=== PATIENT | female | born 1950 | race Caucasian/White ===

== ENCOUNTER 2016-06-06 14:19 | Outpatient (CLI) | payer MEDICARE | END 2016-06-06 14:20 | disposition home or self-care (01) | DX: Z12.31 Encounter for screening mammogram for malignant neoplasm of breast (principal) ==

== ENCOUNTER 2017-05-16 11:22 | Emergency (ER) | payer MEDICARE ==
[2017-05-16 12:38] LABS: BASOPHILS % (AUTO) 0.7 %; EOSINOPHILS % (AUTO) 0.4 %; HGB - HEMOGLOBIN 12.6 g/dL (12.0-16.0); LYMPHOCYTES # (AUTO) 0.5 10^3/uL (1.5-3.5); LYMPHOCYTES % (AUTO) 14.4 %; MEAN CORPUSCULAR HEMOGLOBIN 33.5 pg (27.0-31.0); MEAN CORPUSCULAR HGB CONC 34.6 g/dL (32.0-36.0); MEAN CORPUSCULAR VOLUME 96.8 fL (81.0-99.0); MEAN PLATELET VOLUME 7.2 fL (7.9-10.8); MONOCYTES # (AUTO) 0.3 10^3/uL (0.0-1.0); MONOCYTES % (AUTO) 8.8 %; NEUTROPHILS # (AUTO) 2.9 10^3/uL (1.5-6.6); NEUTROPHILS % (AUTO) 75.7 %; PLT - PLATELET COUNT 211 10^3/uL (130-450); RED BLOOD COUNT 3.75 10^6/uL (4.20-5.40); RED CELL DISTRIBUTION WIDTH 14.5 % (12.0-15.0); WHITE BLOOD COUNT 3.8 x10^3/uL (4.8-10.8)
--- NOTE | 2017-05-16 12:43 | XRAY Report ---
EXAM: CHEST RADIOGRAPHY EXAM DATE: 05/16/2017 12:16 PM. CLINICAL HISTORY: Productive cough. COMPARISON: 04/18/2016 P14 2016. TECHNIQUE: 1 view. FINDINGS: Lungs/Pleura: Interstitium is prominent. Right lower lung parenchymal scarring and postsurgical olea es as before. No new consolidation. No vascular congestion. No pneumothorax. Mediastinum: Heart size is normal. Aorta is mildly tortuous. Other: No acute osseous abnormalities. IMPRESSION: 1. No acute disease in the chest. [facility] Referring Provider Line: [phone] SITE ID: [id number]
[2017-05-16 12:50] LABS: ALBUMIN 4.1 g/dL (3.2-5.5); ALBUMIN/GLOBULIN RATIO 1.5 (1.0-2.2); BILIRUBIN,TOTAL 0.7 mg/dL (0.2-1.0); CALCIUM 9.1 mg/dL (8.5-10.3); CREATININE 0.8 mg/dL (0.4-1.0); TOTAL PROTEIN 6.9 g/dL (6.7-8.2)
[2017-05-16 14:03] VITALS: BP 123/88
--- NOTE | 2017-05-16 14:24 | ED Physician Documentation ---
History of Present Illness - Stated complaint Stated Complaint: DIFF MOVING LEGS - Chief complaint Chief Complaint: General - History obtained from History obtained from: Patient - History of Present Illness Timing: Other (She had an endoscopic ultrasound on Fridaynce for a history of cirrhosis which per her was negative for varices which was what they were looking for. That night she developed cramps in her calves bilaterally and progressive diffuse myalgias with a low-grade fever and runny nose. She thinks she might be having a medication reaction.) Review of Systems Constitutional: reports: Fever, Chills, Myalgias, Fatigue Nose: reports: Rhinorrhea / runny nose Throat: denies: Sore throat Respiratory: reports: Cough. 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 - Present Medications Home Medications: Ambulatory Orders Medication Instructions Recorded Confirmed HYDROcod/ACETAM 5/325 [Vicodin 1 - 2 ea PO Q6H PRN #15 tablet 12/27/12 05/16/17 5/325] Metformin HCl [Fortamet] 500 mg PO HS 12/27/12 05/16/17 busPIRone [Buspar] 15 mg PO BID 12/27/12 05/16/17 Levothyroxine [Synthroid] 50 mcg PO QDAC 06/03/13 05/16/17 EPINEPHrine [Epipen] 0.3 mg SQ PRN PRN 09/14/14 05/16/17 Lisinopril 40 mg PO DAILY 09/14/14 05/16/17 raNITIdine [Zantac] 300 mg QPM 09/14/14 05/16/17 Cyclobenzaprine [Flexeril] 10 mg PO TID PRN #20 tablet 04/18/16 05/16/17 Acyclovir [Zovirax] 800 mg PO DAILY 05/16/17 05/16/17 Escitalopram Oxalate [Lexapro] 20 mg PO DAILY 05/16/17 05/16/17 Loratadine [Claritin] 10 mg PO DAILY 05/16/17 05/16/17 Oseltamivir [Tamiflu] 75 mg PO BID #10 capsule 05/16/17 - Allergies Allergies/Adverse Reactions: Allergies Allergy/AdvReac Type Severity Reaction Status Date / Time Iodinated Contrast- Oral and Allergy throat Verified 05/16/17 11:42 IV Dye swelling [Iodinated Contrast Media - IV Dye] pneumococcal vaccine Allergy swelling Verified 05/16/17 11:42 [Pneumococcal Vaccine] - Social History Does the pt smoke?: No Smoking Status: Never smoker Does the pt drink ETOH?: No Does the pt have substance abuse?: No - Immunizations Immunizations are current?: Yes - POLST Patient has POLST: No PD ED PE NORMAL - Vitals Vital signs reviewed: Yes - General General: Alert and oriented X 3, No acute distress - HEENT HEENT: PERRL, EOMI, Ears normal, Moist mucous membranes, Pharynx benign - Neck Neck: Supple, no meningeal sign, No bony TTP - Cardiac Cardiac: RRR, No murmur - Respiratory Respiratory: No respiratory distress, Clear bilaterally - Abdomen Abdomen: Non tender - Extremities Extremities: No edema, No calf tenderness / cord - Neuro Neuro: Alert and oriented X 3, No motor deficit (Normal extremity strength and reflexes) Eye Opening: Spontaneous Motor: Obeys Commands Verbal: Oriented GCS Score: 15 - Psych Psych: Normal mood, Normal affect Results - Vitals Vitals: Vital Signs - 24 hr 05/16/17 05/16/17 11:35 13:53 Temperature 37.2 C 36.9 C Heart Rate 64 76 Respiratory 16 18 Rate Blood Pressure 108/74 123/88 H O2 Saturation 99 97 Oxygen O2 Source Room air - Labs Labs: Laboratory Tests 05/16/17 05/16/17 05/16/17 12:25 12:25 12:25 WBC 3.8 L RBC 3.75 L Hgb 12.6 Hct 36.3 L MCV 96.8 MCH 33.5 H MCHC 34.6 RDW 14.5 Plt Count 211 MPV 7.2 L Neut # 2.9 Lymph # 0.5 L Gillespie # 0.3 Eos # 0.0 Baso # 0.0 Absolute Nucleated RBC 0.00 Nucleated RBC % 0.0 Sodium 135 Potassium 3.9 Chloride 99 L Carbon Dioxide 25 Anion Gap 11.0 BUN 18 Creatinine 0.8 Estimated GFR (MDRD) 72 L Glucose 102 H Calcium 9.1 Total Bilirubin 0.7 AST 37 ALT 19 Alkaline Phosphatase 50 Total Creatine Kinase 235 CK-MB (CK-2) Total Protein 6.9 Albumin 4.1 Globulin 2.8 Albumin/Globulin Ratio 1.5 Lipase 16 L Influenza A (Rapid) Influenza B (Rapid) Influenza Types A,B Ag 05/16/17 05/16/17 12:25 14:30 WBC RBC Hgb Hct MCV MCH MCHC RDW Plt Count MPV Neut # Lymph # Gillespie # Eos # Baso # Absolute Nucleated RBC Nucleated RBC % Sodium Potassium Chloride Carbon Dioxide Anion Gap BUN Creatinine Estimated GFR (MDRD) Glucose Calcium Total Bilirubin AST ALT Alkaline Phosphatase Total Creatine Kinase CK-MB (CK-2) 2.2 Total Protein Albumin Globulin Albumin/Globulin Ratio Lipase Influenza A (Rapid) POSITIVE H Influenza B (Rapid) Negative Influenza Types A,B Ag + H PD MEDICAL DECISION MAKING - ED course ED course: 66-year-old woman with the muscle aches fever and it started right after an endoscopy so she thought it was somehow related but given the fever I suspect she has influenza and she is influenza positive. Departure - Departure Disposition: Home, Self Care Clinical Impression: Influenza A Condition: Good Record reviewed to determine appropriate education?: Yes Instructions: ED Flu, Medication: Tamiflu (Oseltamivir) Prescriptions: Oseltamivir [Tamiflu] 75 mg PO BID #10 capsule Comments: Call your doctor to arrange a follow-up appointment, make the next available appointment. In the interim, return anytime if worse or if new symptoms develop. Your blood pressure was elevated today on check into the emergency department. This does not mean that you have hypertension, it is a common phenomenon to come to the emergency department and have elevated blood pressure. I recommend that you see your primary care physician within the week to have it rechecked when you are feeling better.
[2017-05-16] MEDS ORDERED: OSELTAMIVIR 75 MG CAPSULE PO STA (14:55)
== END 2017-05-16 15:28 | disposition home or self-care (01) ==
LOC: ED 11:22
DX: J10.1 Influenza due to other identified influenza virus with other respiratory manifestations (principal); R03.0 Elevated blood-pressure reading, without diagnosis of hypertension; E11.9 Type 2 diabetes mellitus without complications; Z79.84 Long term (current) use of oral hypoglycemic drugs; K74.60 Unspecified cirrhosis of liver; K75.9 Inflammatory liver disease, unspecified; E03.9 Hypothyroidism, unspecified
CPT/HCPCS: 36415; 71045; 80053; 82550; 82553; 83690; 85025; 87275; 87276; 99283; A9270

== ENCOUNTER 2017-06-19 15:38 | Outpatient (CLI) | payer MEDICARE ==
--- NOTE | 2017-06-23 12:51 | Mammography Report ---
DIGITAL SCREENING MAMMOGRAM: 06/19/2017 CLINICAL INDICATION: A 66-year-old nulliparous patient with history of benign biopsies, for screening. COMPARISON: 05/2016, 05/2015, 05/2014, 05/2013. TECHNIQUE: Routine CC and MLO projections were obtained of the breasts. FINDINGS: The breasts again demonstrate heterogeneously dense fibroglandular parenchyma bilaterally. Coarse and punctate, typically benign calcifications are present. No suspicious masses, clustered microcalcifications, or regions of architectural distortion are identified. IMPRESSION: BENIGN FINDINGS. RECOMMENDATION: ROUTINE ANNUAL SCREENING UNLESS OTHERWISE CLINICALLY INDICATED. BIRADS CATEGORY 2-BENIGN FINDINGS. STANDARD QUALIFYING STATEMENTS: 1. This examination was reviewed with the aid of Computer-Aided Detection (CAD). 2. A negative or benign imaging report should not delay biopsy if clinically suspicious findings are present. Consider surgical consultation if warranted. More than 5% of cancers are not identified by imaging. 3. Dense breasts may obscure an underlying neoplasm. TD: 06/23/2017 12:51
== END 2017-06-19 15:39 | disposition home or self-care (01) ==
LOC: DI 15:38
PROVIDERS: ATTEND Internal Medicine
DX: Z12.31 Encounter for screening mammogram for malignant neoplasm of breast (principal)
CPT/HCPCS: 77067

== ENCOUNTER 2017-09-14 16:49 | Emergency (ER) | payer MEDICARE ==
[2017-09-14 17:11] VITALS: BP 133/94
--- NOTE | 2017-09-14 19:00 | ED Physician Documentation ---
PD HPI Fall - Stated complaint Stated Complaint: RT KNEE INJ, LT HAND INJ - Chief complaint Chief Complaint: Wound - History obtained from History obtained from: Patient - History of Present Illness Mechanism of injury: Lost balance (2 dogs acame at her while she was walking her dog and she got knocked over. Abrasions of right knee/kyle and left hand. Pain right hip. Might have hit her head but no LOC, confusion, nor headache. 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 No: Movement Contributing factors: No: Anticoagulated Recently seen: Not recently seen Review of Systems Constitutional: denies: Fever Nose: denies: Rhinorrhea / runny nose, Congestion Throat: denies: Sore throat Respiratory: denies: Cough GI: denies: Abdominal Pain, Nausea, Vomiting, Diarrhea Skin: reports: Abrasion (s). 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 - Present Medications Home Medications: Ambulatory Orders Medication Instructions Recorded Confirmed Metformin HCl [Fortamet] 500 mg PO HS 12/27/12 09/16/17 busPIRone [Buspar] 15 mg PO BID 12/27/12 09/16/17 Levothyroxine [Synthroid] 50 mcg PO QDAC 06/03/13 09/16/17 EPINEPHrine [Epipen] 0.3 mg SQ PRN PRN 09/14/14 09/16/17 Lisinopril 40 mg PO DAILY 09/14/14 09/16/17 raNITIdine [Zantac] 300 mg QPM 09/14/14 09/16/17 Escitalopram Oxalate [Lexapro] 20 mg PO DAILY 05/16/17 09/16/17 - Allergies Allergies/Adverse Reactions: Allergies Allergy/AdvReac Type Severity Reaction Status Date / Time Iodinated Contrast- Oral and Allergy throat Verified 09/16/17 12:14 IV Dye swelling [Iodinated Contrast Media - IV Dye] pneumococcal vaccine Allergy swelling Verified 09/16/17 12:14 [Pneumococcal Vaccine] - Social History Does the pt smoke?: No Smoking Status: Never smoker Does the pt drink ETOH?: No Does the pt have substance abuse?: No - Immunizations Immunizations are current?: Yes - POLST Patient has POLST: No PD ED PE NORMAL - Vitals Vital signs reviewed: Yes - General General: Alert and oriented X 3, No acute distress, Well developed/nourished - HEENT HEENT: Atraumatic - Neck Neck: Supple, no meningeal sign, No bony TTP, No adenopathy - Cardiac Cardiac: RRR, No murmur - Respiratory Respiratory: Clear bilaterally - Back Back: No CVA TTP, No spinal TTP - Derm Derm: Normal color, Warm and dry - Extremities Extremities: Other (left palm with maría brasion. 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 No bony tenderness. Right knee/kyle with abrasions too, good ROM and no effusion, good weight bearing. Right hip with some tenderness laterally. Able to bear weight. No noted hematoma. ) Results - Vitals Vitals: Oxygen O2 Source Room air - Rads (name of study) [facility] hip Radiology: Prelim report reviewed, EMP read contemporaneously (no fractures) PD MEDICAL DECISION MAKING - ED course Complexity details: reviewed results, considered differential, d/w patient Departure - Departure Disposition: 01 Home, Self Care Clinical Impression: Accidental fall Qualifiers: Encounter type: initial encounter Qualified Code(s): W19.XXXA - Unspecified fall, initial encounter Contusion, hip Qualifiers: Encounter type: initial encounter Laterality: right Qualified Code(s): S70.01XA - Contusion of right hip, initial encounter Leg abrasion Qualifiers: Encounter type: initial encounter Laterality: right Qualified Code(s): S80.811A - Abrasion, right lower leg, initial encounter Hand abrasion Qualifiers: Encounter type: initial encounter Laterality: left Qualified Code(s): S60.512A - Abrasion of left hand, initial encounter Condition: Stable Record reviewed to determine appropriate education?: Yes Instructions: ED Abrasion Follow-Up: Gail Heard MD [Primary Care Provider] - Comments: Your x-ray appears good and no signs of fracture of the hip. It will be sore for a few days however. Tylenol or ibuprofen if needed for pains. Cleanse the abrasions a couple times a day and apply ointment. This should heal up over a week or so. Recheck if signs of infection. Discharge Date/Time: 09/14/17 19:52
--- NOTE | 2017-09-14 20:20 | XRAY Report ---
EXAM: RIGHT HIP AND PELVIS RADIOGRAPHY EXAM DATE: 09/14/2017 07:29 PM. HISTORY: Fall onto right side. COMPARISONS: None. TECHNIQUE: 1 view of the pelvis and 1 view of the hip. FINDINGS: Bones: Normal. No fracture or bone lesion. Joints: The bilateral hip, pubis symphysis, and sacroiliac joints are preserved. Soft Tissues: Normal. No soft tissue swelling. IMPRESSION: No fracture identified. [facility] Referring Provider Line: [phone] SITE ID: [id number]
== END 2017-09-14 19:52 | disposition home or self-care (01) ==
LOC: ED 16:49
DX: S70.01XA Contusion of right hip, initial encounter (principal); S80.811A Abrasion, right lower leg, initial encounter; S60.512A Abrasion of left hand, initial encounter; W54.1XXA Struck by dog, initial encounter; Y93.K1 Activity, walking an animal; Y92.414 Local residential or business street as the place of occurrence of the external cause; K75.9 Inflammatory liver disease, unspecified; E11.9 Type 2 diabetes mellitus without complications; Z79.84 Long term (current) use of oral hypoglycemic drugs
CPT/HCPCS: 99283

== ENCOUNTER 2017-09-16 11:45 | Emergency (ER) | payer MEDICARE ==
[2017-09-16 12:14] VITALS: BP 121/80
--- NOTE | 2017-09-16 13:08 | ED Physician Documentation ---
PD HPI Fall - Stated complaint Stated Complaint: FALL MOUTH INJ - Chief complaint Chief Complaint: Heent - History obtained from History obtained from: Patient - History of Present Illness Mechanism of injury: Tripped Fall distance: Standing position Where injury occurred: Home Timing - onset: Enter time (1100), Today Injury(ies) location: Face Quality of pain: Pain Associated symptoms: Other (loose front tooth). No: LOC, AMS, Amnesia, Neck pain, Weakness, Paresthesias, Dyspnea Symptoms improve with: Rest, Ice Worsens with: Palpation Contributing factors: No: Anticoagulated Similar symptoms before: Has not had sx before Recently seen: Emergency Dept - Additional information Additional information: 66-year-old female was in her home today walking up the steps when she tripped and fell forward and hit her teeth on this step. She did not have any loss of consciousness she denies any nausea she denies any dizziness she denies any difficulty concentrating other than what she normally has. She describes that she has "brain fog "from treatment of hepatitis C. She is recently been seen in the emergency department for a fall landing on her hip. 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 - Present Medications Home Medications: Ambulatory Orders Medication Instructions Recorded Confirmed Metformin HCl [Fortamet] 500 mg PO HS 12/27/12 09/16/17 busPIRone [Buspar] 15 mg PO BID 12/27/12 09/16/17 Levothyroxine [Synthroid] 50 mcg PO QDAC 06/03/13 09/16/17 EPINEPHrine [Epipen] 0.3 mg SQ PRN PRN 09/14/14 09/16/17 Lisinopril 40 mg PO DAILY 09/14/14 09/16/17 raNITIdine [Zantac] 300 mg QPM 09/14/14 09/16/17 Escitalopram Oxalate [Lexapro] 20 mg PO DAILY 05/16/17 09/16/17 - Allergies Allergies/Adverse Reactions: Allergies Allergy/AdvReac Type Severity Reaction Status Date / Time Iodinated Contrast- Oral and Allergy throat Verified 09/16/17 12:14 IV Dye swelling [Iodinated Contrast Media - IV Dye] pneumococcal vaccine Allergy swelling Verified 09/16/17 12:14 [Pneumococcal Vaccine] - Social History Does the pt smoke?: No Smoking Status: Never smoker Does the pt drink ETOH?: No Does the pt have substance abuse?: Yes Substance Use and Type: Marijuana - Immunizations Immunizations are current?: Yes - POLST Patient has POLST: No PD ED PE NORMAL - Vitals Vital signs reviewed: Yes (normal ) - General General: Alert and oriented X 3, No acute distress, Well developed/nourished - HEENT HEENT: PERRL, EOMI, Ears normal, Moist mucous membranes, Pharynx benign, Other ( There is blood on the upper gums and #9 is loose but still in the socket and at the appropriate level ) - Neck Neck: Supple, no meningeal sign, No bony TTP - Cardiac Cardiac: RRR, No murmur - Respiratory Respiratory: No respiratory distress, Clear bilaterally - Abdomen Abdomen: Soft, Non tender - Back Back: No CVA TTP, No spinal TTP - Derm Derm: Normal color, Warm and dry, No rash - Extremities Extremities: No deformity, No edema - Neuro Neuro: Alert and oriented X 3, 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 ) Eye Opening: Spontaneous Motor: Obeys Commands Verbal: Oriented GCS Score: 15 - Psych Psych: Normal mood, Normal affect PD ED PE EXPANDED - HEENT HEENT Visual: 1 - tenderness (loose) Results - Vitals Vitals: Vital Signs - 24 hr 09/16/17 12:10 Temperature 36.4 C L Heart Rate 64 Respiratory 15 Rate Blood Pressure 121/80 O2 Saturation 94 Oxygen O2 Source Room air PD MEDICAL DECISION MAKING - ED course Complexity details: considered differential, d/w patient ED course: 66-year-old female with another fall who appears to have injured her front teeth and lips and gums. There is no specific intervention indicated at this time the patient does have an appointment to see her dentist in 3 days time and I have encouraged her to eat liquid foods only the tooth is loosened but not out of the socket and appears to be at the appropriate level. Departure - Departure Clinical Impression: Laceration of oral cavity Qualifiers: Encounter type: initial encounter Qualified Code(s): S01.512A - Laceration without foreign body of oral cavity, initial encounter Avulsion of tooth due to trauma Qualifiers: Encounter type: initial encounter Qualified Code(s): S03.2XXA - Dislocation of tooth, initial encounter Condition: Stable Instructions: ED Laceration Mouth, ED Fx Tooth Follow-Up: Gail Heard MD [Primary Care Provider] -
== END 2017-09-16 13:26 | disposition home or self-care (01) ==
LOC: ED 11:45
DX: E11.9 Type 2 diabetes mellitus without complications (principal); Z79.84 Long term (current) use of oral hypoglycemic drugs; S01.512A Laceration without foreign body of oral cavity, initial encounter; W10.9XXA Fall (on) (from) unspecified stairs and steps, initial encounter; Y92.009 Unspecified place in unspecified non-institutional (private) residence as the place of occurrence of the external cause
CPT/HCPCS: 99282

== ENCOUNTER 2018-04-18 11:09 | Emergency (ER) | payer MEDICARE ==
[2018-04-18 12:27] LABS: BASOPHILS % (AUTO) 0.2 %; EOSINOPHILS % (AUTO) 0.5 %; HGB - HEMOGLOBIN 12.5 g/dL (12.0-16.0); LYMPHOCYTES # (AUTO) 0.8 10^3/uL (1.5-3.5); LYMPHOCYTES % (AUTO) 8.9 %; MEAN CORPUSCULAR HEMOGLOBIN 33.7 pg (27.0-31.0); MEAN CORPUSCULAR HGB CONC 34.5 g/dL (32.0-36.0); MEAN CORPUSCULAR VOLUME 97.7 fL (81.0-99.0); MEAN PLATELET VOLUME 7.3 fL (7.9-10.8); MONOCYTES # (AUTO) 0.5 10^3/uL (0.0-1.0); MONOCYTES % (AUTO) 5.6 %; NEUTROPHILS % (AUTO) 84.8 %; PLT - PLATELET COUNT 190 10^3/uL (130-450); RED BLOOD COUNT 3.72 10^6/uL (4.20-5.40); RED CELL DISTRIBUTION WIDTH 13.8 % (12.0-15.0); WHITE BLOOD COUNT 9.4 x10^3/uL (4.8-10.8)
[2018-04-18 12:35] LABS: ALBUMIN 4.5 g/dL (3.2-5.5); ALBUMIN/GLOBULIN RATIO 1.6 (1.0-2.2); CALCIUM 9.3 mg/dL (8.5-10.3); CREATININE 1.1 mg/dL (0.4-1.0); TOTAL PROTEIN 7.3 g/dL (6.7-8.2)
[2018-04-18] MEDS ORDERED: ACETAMINOPHEN 325 MG TABLET PO STA (13:21)
--- NOTE | 2018-04-18 13:23 | ED Physician Documentation ---
History of Present Illness - Stated complaint Stated Complaint: FACIAL LACS/L ARM PAIN - Chief complaint Chief Complaint: Laceration - History obtained from History obtained from: Patient - History of Present Illness Timing: Today Pain level max: 5 Pain level now: 4 - Additonal information Additional information: 67-year-old female states that she was getting up to answer the phone when she tripped and fell, landing on her left arm as well as striking her face on the ground. She states she did not lose consciousness, but reportedly was drowsy and hard to arouse upon arrival to the emergency department. She complains of pain to the left humerus as well as to her face. Pain is better with rest and worse with movement. No neck or back pain. No focal numbness or tingling. Review of Systems Ten Systems: 10 systems reviewed and negative Constitutional: denies: Fever, Chills Eyes: denies: Decreased vision, Photophobia Ears: denies: Ear pain Nose: denies: Rhinorrhea / runny nose, Congestion Throat: denies: Sore throat Cardiac: denies: Chest pain / pressure Respiratory: denies: Cough, Wheezing GI: denies: Abdominal Pain, Nausea, Vomiting, Diarrhea : denies: Dysuria Skin: denies: Rash Musculoskeletal: denies: Neck pain, Back pain Neurologic: denies: Focal weakness, Numbness PD PAST MEDICAL HISTORY - Past Medical History Past Medical History: Yes Endocrine/Autoimmune: Type 2 diabetes, HyPOthyroidism GI: Hepatitis Psych: Depression, Anxiety - Past Surgical History 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 - Present Medications Home Medications: Ambulatory Orders Medication Instructions Recorded Confirmed Metformin HCl [Fortamet] 500 mg PO HS 12/27/12 09/16/17 busPIRone [Buspar] 15 mg PO BID 12/27/12 09/16/17 Levothyroxine [Synthroid] 50 mcg PO QDAC 06/03/13 09/16/17 EPINEPHrine [Epipen] 0.3 mg SQ PRN PRN 09/14/14 09/16/17 Lisinopril 40 mg PO DAILY 09/14/14 09/16/17 raNITIdine [Zantac] 300 mg QPM 09/14/14 09/16/17 Escitalopram Oxalate [Lexapro] 20 mg PO DAILY 05/16/17 09/16/17 HYDROcod/ACETAM 5/325 [[place] 5/325] 04/18/18 Levothyroxine [Synthroid] 04/18/18 04/18/18 Oxycodone HCl/Acetaminophen 1 - 2 each PO Q6H PRN #14 tablet 04/18/18 [Percocet 5-325 mg Tablet] clonazePAM [Clonazepam] 04/18/18 metFORMIN [Glucophage] 04/18/18 - Allergies Allergies/Adverse Reactions: Allergies Allergy/AdvReac Type Severity Reaction Status Date / Time Iodinated Contrast- Oral and Allergy throat Verified 04/18/18 11:23 IV Dye swelling [Iodinated Contrast Media - IV Dye] pneumococcal vaccine Allergy swelling Verified 04/18/18 11:23 [Pneumococcal Vaccine] - Social History Does the pt smoke?: No Smoking Status: Former smoker Does the pt drink ETOH?: No Does the pt have substance abuse?: Yes Substance Use and Type: Marijuana - Immunizations Immunizations are current?: Yes Immunizations: TDAP current <10years - POLST Patient has POLST: No PD ED PE NORMAL - Vitals Vital signs reviewed: Yes - General General: Alert and oriented X 3, No acute distress, Well developed/nourished - HEENT HEENT: PERRL, EOMI, Ears normal, Moist mucous membranes, Other (Laceration to the bridge of the nose. Approximately 1.5 cm, curved. Swelling to the bridge of the nose as well. Dried blood inside bilateral nares. No visible septal hematomas. There is also dried blood in the oropharynx. No visible lacerations here. No dental injury noted.) - Neck Neck: Supple, no meningeal sign, No bony TTP (Full range of motion without pain. No step-off or deformity) - Cardiac Cardiac: RRR, Strong equal pulses - Respiratory Respiratory: No respiratory distress, Clear bilaterally - Abdomen Abdomen: Soft, Non tender, Non distended - Back Back: No spinal TTP - Derm Derm: Warm and dry - Extremities Extremities: No deformity, Other (Diffuse tenderness to palpation over the left humerus. Neurovascularly intact.) - Neuro Neuro: Alert and oriented X 3 - Psych Psych: Normal mood, Normal affect Results - Vitals Vitals: Vital Signs - 24 hr 04/18/18 04/18/18 04/18/18 11:20 13:06 13:38 Temperature 36.4 C L Heart Rate 62 59 L 55 L Respiratory 14 20 18 Rate Blood Pressure 94/44 L 106/61 107/80 O2 Saturation 90 L 94 93 04/18/18 04/18/18 15:01 15:21 Temperature 37.2 C 36.6 C Heart Rate 79 94 Respiratory 16 24 Rate Blood Pressure 99/57 L 117/53 L O2 Saturation 93 98 Oxygen O2 Source Room air - Labs Labs: Laboratory Tests 04/18/18 04/18/18 04/18/18 11:55 11:55 12:39 WBC 9.4 RBC 3.72 L Hgb 12.5 Hct 36.3 L MCV 97.7 MCH 33.7 H MCHC 34.5 RDW 13.8 Plt Count 190 MPV 7.3 L Neut # (Auto) 8.0 H Lymph # (Auto) 0.8 L [place] # (Auto) 0.5 Eos # (Auto) 0.0 Baso # (Auto) 0.0 Absolute Nucleated RBC 0.00 Nucleated RBC % 0.0 Sodium 131 L Potassium 3.6 Chloride 94 L Carbon Dioxide 27 Anion Gap 10.0 BUN 23 H Creatinine 1.1 H Estimated GFR (MDRD) 50 L Glucose 128 H POC Whole Bld Glucose 102 H Calcium 9.3 Total Bilirubin 1.0 AST 27 ALT 13 Alkaline Phosphatase 80 Total Protein 7.3 Albumin 4.5 Globulin 2.8 Albumin/Globulin Ratio 1.6 Lipase 19 L - Rads (name of study) CT head Radiology: Prelim report reviewed, EMP read contemporaneously, See rad report (Nasal fracture present, with adjacent soft tissue contusion. No intracranial abnormality.) Ct facial bones Radiology: Prelim report reviewed, EMP read contemporaneously, See rad report (Nasal fracture, including septum noted described above with adjacent soft tissue contusion) L humerus xray Radiology: Prelim report reviewed, EMP read contemporaneously, See rad report (Transverse fracture involving the left humeral neck. Possible marrow heterogeneity suggests possibility of pathologic fracture. ) cxr Radiology: Prelim report reviewed, EMP read contemporaneously, See rad report (Minimal atelectatic changes at the left costophrenic angle without consolidation. Transverse fracture of the left humeral neck. Right supraspinatus calcific tendinosis. ) Procedures - Laceration (location) bridge of nose Length in cm: 1.5 Wound type: Curved, Superficial, Clean Neurovascular status: Sensory intact Wound Preparation: Irrigated copiously NS (250ml NS) Skin layer closure: Dermabond Other: Patient tolerated well, No complications, Neurovascular intact, Dressing applied, Tetanus UTD Complexity: Simple PD MEDICAL DECISION MAKING - ED course Complexity details: reviewed results, re-evaluated patient, considered differential, d/w patient ED course: d/w Dr. Camara, ortho who recommends sling and follow up in clinic. Laceration repaired. Pain controlled. Will follow up with PCP and ortho. Pt counseled regarding expected course and signs and symptoms for which I believe an urgent evaluation would be necessary. Pt with good understanding and agreement to plan. Departure - Departure Disposition: 01 Home, Self Care Clinical Impression: Fracture of neck of humerus Qualifiers: Encounter type: initial encounter Fracture type: closed Laterality: left Qualified Code(s): S42.212A - Unspecified displaced fracture of surgical neck of left humerus, initial encounter for closed fracture Nasal bone fractures Qualifiers: Encounter type: initial encounter Fracture type: closed Qualified Code(s): S02.2XXA - Fracture of nasal bones, initial encounter for closed fracture Nasal laceration Qualifiers: Encounter type: initial encounter Qualified Code(s): S01.21XA - Laceration without foreign body of nose, initial encounter Condition: Good Instructions: ED Fx Upper Ext, ED Laceration All, ED Fx Nose W Lac Skin Glue Follow-Up: [facility] [Provider Group] - Within 1 week Gail Heard MD [Primary Care Provider] - Within 1 week Prescriptions: Oxycodone HCl/Acetaminophen [Percocet 5-325 mg Tablet] 1 - 2 each PO Q6H PRN #14 tablet PRN Reason: pain Comments: Wear the sling until released by orthopedics. Return if you worsen. You have a fracture of your left humeral neck, up in your shoulder as well as of your nose. Do not drink alcohol or drive while on narcotic pain medicine. Note that many narcotic pain relievers also contain tylenol/acetaminophen. Please ensure that your total dose of acetaminophen from all sources does not exceed 3 grams (3000mg) per day. You may constipated on this medication, take a stool softener such as "Colace" twice a day while you are on it. Also recommend a [id number] laxative such as senna or MiraLAX any day that you do not have a bowel movement. If you received narcotic pain medication in the emergency department, do not drive or operate machinery for the next 24 hours. Discharge Date/Time: 04/18/18 15:22
[2018-04-18] MEDS ORDERED: SODIUM CHLORIDE 0.9% 1,000 ML IV ONE (13:24)
--- NOTE | 2018-04-18 14:18 | XRAY Report ---
Reason: hypoxia Procedure Date: 04/18/2018 Accession Number: [id number] / [id number] Procedure: XR - Chest 1 View X-Ray CPT Code: 76956 FULL RESULT: EXAM: CHEST RADIOGRAPHY EXAM DATE: 04/18/2018 01:54 PM. CLINICAL HISTORY: Hypoxia. COMPARISON: Previous exam of 04/18/2016. TECHNIQUE: 1 view. FINDINGS: Lungs/Pleura: Minimal atelectatic changes seen at the left lateral costophrenic angle. No gross consolidation seen. Mediastinum: Within exam limitations, the cardiomediastinal contour is normal. Other: There has been interval development of transverse fracture at the left humeral neck. Right supraspinatus calcific tendinosis noted. IMPRESSION: 1. Minimal atelectatic changes at the left costophrenic angle without evidence of consolidation. 2. Transverse fracture of the left humeral neck, new since exam of 04/18/2016. 3. Right supraspinatus calcific tendinosis. RADIA
--- NOTE | 2018-04-18 14:20 | XRAY Report ---
Reason: fall L arm pain Procedure Date: 04/18/2018 Accession Number: [id number] / [id number] Procedure: XR - Humerus LT CPT Code: FULL RESULT: EXAM: LEFT HUMERUS RADIOGRAPHY EXAM DATE: 04/18/2018 01:54 PM. CLINICAL HISTORY: Arm pain post fall. COMPARISON: X-ray of the clavicle from 04/11/2014. TECHNIQUE: 2 views. FINDINGS: Bones: There is a transverse fracture involving the left humeral neck. There is possible marrow heterogeneity. Joints: Mild degenerative changes noted. No effusions or subluxations in the visualized shoulder or elbow joints. Soft Tissues: Mild soft tissue swelling seen. IMPRESSION: Transverse fracture involving the left humeral neck. Possible marrow heterogeneity suggests possibility of pathologic fracture. Clinical correlation is recommended. RADIA
--- NOTE | 2018-04-18 14:33 | CT Report ---
Reason: fall, drowsiness, head injury Procedure Date: 04/18/2018 Accession Number: [id number] / [id number] Procedure: CT - Head W/O CPT Code: FULL RESULT: EXAM: CT HEAD EXAM DATE: 04/18/2018 02:02 PM. CLINICAL HISTORY: Fall, drowsiness, head injury. COMPARISON: Previous exam of 09/14/2014. TECHNIQUE: Multiaxial CT images were obtained from the foramen magnum to the vertex. Reformats: Sagittal and coronal. IV contrast: None. In accordance with CT protocol optimization, one or more of the following dose reduction techniques were utilized for this exam: automated exposure control, adjustment of mA and/or KV based on patient size, or use of iterative reconstructive technique. FINDINGS: Parenchyma: No intraparenchymal hemorrhage. No evidence of mass, midline shift, or CT findings of infarction. Killian-white differentiation is distinct. Extraaxial Spaces: Normal for age. No subdural or epidural collections identified. Ventricles: Normal in size and position. Sinuses and Orbits: Imaged paranasal sinuses, orbits, and mastoids show no significant abnormality. Bones: A nasal fracture is present, with adjacent soft tissue contusion. Other: None. IMPRESSION: Nasal fracture present, with adjacent soft tissue contusion. No CT evidence of acute intracranial disease. RADIA
--- NOTE | 2018-04-18 14:37 | CT Report ---
Reason: fall, nasal and maxilla tenderness/laceration Procedure Date: 04/18/2018 Accession Number: [id number] / [id number] Procedure: CT - Facial Bones W/O CPT Code: FULL RESULT: EXAM: CT MAXILLOFACIAL WITHOUT CONTRAST EXAM DATE: 04/18/2018 02:02 PM. CLINICAL HISTORY: Fall, nasal and maxilla tenderness/laceration. COMPARISONS: None. TECHNIQUE: Thin-section axial images were acquired of the face without contrast. Post-processing: Coronal and sagittal reformats. Other: None. In accordance with CT protocol optimization, one or more of the following dose reduction techniques were utilized for this exam: automated exposure control, adjustment of mA and/or KV based on patient size, or use of iterative reconstructive technique. FINDINGS: Soft Tissue: The infratemporal fossa and parapharyngeal spaces are unremarkable. Orbits: Symmetric and unremarkable. Bones: There is a nasal fracture without significant displacement. Fracture of the nasal septum is noted, with slight left deviation. There is adjacent soft tissue contusion seen. Temporomandibular Joints: The temporomandibular joints are symmetric and normally located. Sinuses: Polyp versus mucus retention cyst seen in the mid left ethmoid sinuses. Other: None. IMPRESSION: Nasal fracture, including septum noted described above with adjacent soft tissue contusion. RADIA
[2018-04-18] MEDS ORDERED: oxyCODONE 5 MG TABLET PO STA (14:54)
[2018-04-18 15:21] VITALS: BP 117/53
== END 2018-04-18 15:22 | disposition home or self-care (01) ==
LOC: ED 11:09
DX: S42.212A Unspecified displaced fracture of surgical neck of left humerus, initial encounter for closed fracture (principal); S02.2XXA Fracture of nasal bones, initial encounter for closed fracture; S01.21XA Laceration without foreign body of nose, initial encounter; E03.9 Hypothyroidism, unspecified; E11.9 Type 2 diabetes mellitus without complications; Z79.84 Long term (current) use of oral hypoglycemic drugs; Z87.891 Personal history of nicotine dependence; W01.0XXA Fall on same level from slipping, tripping and stumbling without subsequent striking against object, initial encounter
CPT/HCPCS: 12011; 36415; 70450; 70486; 71045; 73060; 80053; 83690; 85025; 96360; 96361; 99284; A9270

== ENCOUNTER 2018-04-20 09:04 | Emergency (ER) | payer MEDICARE ==
--- NOTE | 2018-04-20 10:02 | ED Physician Documentation ---
PD HPI UPPER EXT INJURY - Stated complaint Stated Complaint: PAIN 2ND TO FALL - Chief complaint Chief Complaint: Ext Problem - History obtained from History obtained from: Patient - History of Present Illness Location: Left, Shoulder Type of injury: Fall Where injury occurred: Home Timing - onset: How many days ago (3) Timing - duration: Days (3) Timing - details: Abrupt onset, Still present Improved by: Rest, Immobilization Worsened by: Moving, Palpating Associated symptoms: Swelling, Discolored. No: Weakness, Numbness Contributing factors: No: Anticoagulated Similar symptoms before: Has not had sx before Recently seen: Emergency Dept - Additonal information Additional information: 67-year-old female had a fall onto her face and she fractured her left humerus and her nose. She is been placed into a sling and swath and she is not able to put herself into the sling. She has not been able to figure out the sling and swath. She is come to the emergency department this morning with this chief complaint. Review of Systems Constitutional: denies: Fever Respiratory: denies: Cough GI: denies: Vomiting Musculoskeletal: reports: Extremity pain, Joint pain, Joint swelling. 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 - Present Medications Home Medications: Ambulatory Orders Medication Instructions Recorded Confirmed Metformin HCl [Fortamet] 500 mg PO HS 12/27/12 09/16/17 busPIRone [Buspar] 15 mg PO BID 12/27/12 09/16/17 Levothyroxine [Synthroid] 50 mcg PO QDAC 06/03/13 09/16/17 EPINEPHrine [Epipen] 0.3 mg SQ PRN PRN 09/14/14 09/16/17 Lisinopril 40 mg PO DAILY 09/14/14 09/16/17 raNITIdine [Zantac] 300 mg QPM 09/14/14 09/16/17 Escitalopram Oxalate [Lexapro] 20 mg PO DAILY 05/16/17 09/16/17 HYDROcod/ACETAM 5/325 [[place] 5/325] 04/18/18 Levothyroxine [Synthroid] 04/18/18 04/18/18 Oxycodone HCl/Acetaminophen 1 - 2 each PO Q6H PRN #14 tablet 04/18/18 [Percocet 5-325 mg Tablet] clonazePAM [Clonazepam] 04/18/18 - Allergies Allergies/Adverse Reactions: Allergies Allergy/AdvReac Type Severity Reaction Status Date / Time Iodinated Contrast- Oral and Allergy throat Verified 04/20/18 09:22 IV Dye swelling [Iodinated Contrast Media - IV Dye] pneumococcal vaccine Allergy swelling Verified 04/20/18 09:22 [Pneumococcal Vaccine] - Social History Does the pt smoke?: No Smoking Status: Former smoker Does the pt drink ETOH?: No Does the pt have substance abuse?: Yes - Immunizations Immunizations are current?: Yes Immunizations: TDAP current <10years - POLST Patient has POLST: No PD ED PE NORMAL - Vitals Vital signs reviewed: Yes (normal ) - General General: Alert and oriented X 3, No acute distress, Well developed/nourished - HEENT HEENT: PERRL, EOMI, Other (The patient has bruising to the face consistent with the previously described injury with nasal fracture. ) - Neck Neck: Supple, no meningeal sign, No bony TTP - Respiratory Respiratory: No respiratory distress - Derm Derm: Normal color, Warm and dry - Extremities Extremities: Other (There is swelling and ecchymosis to the left shoulder consistent with the fracture the paitent has sustained. ) - Neuro Neuro: Alert and oriented X 3, tile edger 2-12 intact, No motor deficit, No sensory deficit, Normal speech Eye Opening: Spontaneous Motor: Obeys Commands Verbal: Oriented GCS Score: 15 - Psych Psych: Normal mood, Normal affect Results - Vitals Vitals: Vital Signs - 24 hr 04/20/18 09:18 Temperature 37.1 C Heart Rate 90 Respiratory 17 Rate Blood Pressure 114/71 O2 Saturation 97 Oxygen O2 Source Room air PD MEDICAL DECISION MAKING - ED course Complexity details: considered differential, d/w patient ED course: 67-year-old female with a recent fall is unable to get her sling and swath to fit properly she is taught the application of the sling and she is instructed to remove her arm from the sling twice per day to do pendulum range of motion exercises. She is bargaining for more pain medication and she and she is referred back to her primary care doctor who does her pain management. Departure - Departure Disposition: 01 Home, Self Care Clinical Impression: Fracture of neck of humerus Qualifiers: Encounter type: subsequent encounter Fracture type: closed Laterality: left F racture healing: with routine healing Qualified Code(s): S42.212D - Unspecified displaced fracture of surgical neck of left humerus, subsequent encounter for fracture with routine healing Condition: Stable Instructions: ED Fx Shoulder Follow-Up: Gail Heard MD [Primary Care Provider] - Jeramy Camara MD [Provider Admit Priv/Credential] - Comments: You will need to wear the sling and swath continuously and remove it twice per day to do range of motion exercises with your shoulder. To do this remove the sling leaning to your side and roll your arm in a mild range of motion. You are under pain management by her primary care doctor and will need to get further pain medication from your primary care doctor give doctor Félix call.
[2018-04-20 10:39] VITALS: BP 112/68
== END 2018-04-20 10:37 | disposition home or self-care (01) ==
LOC: ED 09:04
DX: S42.212A Unspecified displaced fracture of surgical neck of left humerus, initial encounter for closed fracture (principal); W18.30XA Fall on same level, unspecified, initial encounter; Y92.009 Unspecified place in unspecified non-institutional (private) residence as the place of occurrence of the external cause; E11.9 Type 2 diabetes mellitus without complications; Z79.84 Long term (current) use of oral hypoglycemic drugs; E03.9 Hypothyroidism, unspecified; Z87.891 Personal history of nicotine dependence
CPT/HCPCS: 99283; 99284

== ENCOUNTER 2018-04-24 16:40 | Outpatient (CLI) | payer MEDICARE ==
--- NOTE | 2018-04-25 17:38 | XRAY Report ---
Reason: LT WRIST PAIN AFTER FALL Procedure Date: 04/24/2018 Accession Number: [id number] / [id number] Procedure: XR - Wrist 4 View LT CPT Code: FULL RESULT: EXAM: LEFT WRIST RADIOGRAPHY EXAM DATE: 04/24/2018 05:12 PM. CLINICAL HISTORY: LT WRIST PAIN AFTER FALL. COMPARISON: None. TECHNIQUE: 4 views. FINDINGS: Bones: Normal. No fractures or bone lesions. Joints: Normal. No subluxations. Soft Tissues: Normal. No soft tissue swelling. IMPRESSION: Negative left wrist radiography. RADIA
== END 2018-04-24 16:41 | disposition home or self-care (01) ==
LOC: DI 16:40
PROVIDERS: ATTEND Internal Medicine
DX: M25.532 Pain in left wrist (principal)

== ENCOUNTER 2018-04-27 14:36 | Outpatient (CLI) | payer MEDICARE ==
[2018-04-27 15:05] LABS: BASOPHILS % (AUTO) 0.3 %; EOSINOPHILS # (AUTO) 0.1 10^3/uL (0.0-0.7); EOSINOPHILS % (AUTO) 1.8 %; HGB - HEMOGLOBIN 9.3 g/dL (12.0-16.0); LYMPHOCYTES # (AUTO) 1.7 10^3/uL (1.5-3.5); LYMPHOCYTES % (AUTO) 25.7 %; MEAN CORPUSCULAR HEMOGLOBIN 34.7 pg (27.0-31.0); MEAN CORPUSCULAR HGB CONC 35.4 g/dL (32.0-36.0); MEAN CORPUSCULAR VOLUME 98.1 fL (81.0-99.0); MONOCYTES # (AUTO) 0.5 10^3/uL (0.0-1.0); MONOCYTES % (AUTO) 7.7 %; NEUTROPHILS # (AUTO) 4.3 10^3/uL (1.5-6.6); NEUTROPHILS % (AUTO) 64.5 %; PLT - PLATELET COUNT 496 10^3/uL (130-450); RED BLOOD COUNT 2.69 10^6/uL (4.20-5.40); RED CELL DISTRIBUTION WIDTH 14.9 % (12.0-15.0); WHITE BLOOD COUNT 6.6 x10^3/uL (4.8-10.8)
[2018-04-27 15:15] LABS: CALCIUM 8.9 mg/dL (8.5-10.3); CREATININE 1.1 mg/dL (0.4-1.0)
--- NOTE | 2018-04-28 18:34 | CT Report ---
Reason: UNSPECIFIED FRACTURE OF UPPER END OF LEFT HUMERUS Procedure Date: 04/27/2018 Accession Number: [id number] / [id number] Procedure: CT - Upper Extremity Left W/O CPT Code: FULL RESULT: EXAM: LEFT SHOULDER CT WITHOUT CONTRAST. EXAM DATE: 04/27/2018 03:00 PM. CLINICAL HISTORY: Unspecified fracture of upper end of left humerus. COMPARISON: Shoulder 3 views lateral 04/27/2018 9:23 AM, chest 1 view 04/18/2018 1:45 PM. TECHNIQUE: Thin-section axial images were acquired of the shoulder without contrast. Post-processing: Coronal and sagittal reformats. Other: None. In accordance with CT protocol optimization, one or more of the following dose reduction techniques were utilized for this exam: automated exposure control, adjustment of mA and/or KV based on patient size, or use of iterative reconstructive technique. FINDINGS: Bones: High-energy comminuted humerus four-part, marked displacement, intact articular, varus malalignment fracture. Multiple loose bodies and fragments are seen around the fracture margins. Articular surface is displaced inferiorly and posteriorly and rotated medially about 120 degrees. The fractured margin of the proximal humerus is in contact with the inferior bony glenoid. Series 6 image 98. Joints: Fracture as noted does not involve the articular surface of the humerus or glenoid. AC joint is normal. Musculature: Surrounding muscular edema and swelling is present. Other: The included lung shows some focal cystic change which may be secondary to bronchiectasis or early interstitial lung disease. IMPRESSION: 1. High-energy comminuted humerus four-part, marked displacement, intact articular, varus malalignment fracture. Multiple loose bodies and fragments around the fracture margins. Articular surface of the proximal humerus is inferiorly and posteriorly displaced and rotated medially by about 120 degrees. 2. Included lung shows some focal cystic change which may be secondary to bronchiectasis or early interstitial lung disease. RADIA
== END 2018-04-27 14:37 | disposition home or self-care (01) ==
LOC: DI 14:36
PROVIDERS: ATTEND Orthopaedic Surgery Sports Medicine
DX: Z01.818 Encounter for other preprocedural examination (principal); S42.202A Unspecified fracture of upper end of left humerus, initial encounter for closed fracture
CPT/HCPCS: 36415; 80048; 85025; 93005

== ENCOUNTER 2018-04-29 11:15 | Day surgery (SDC) | payer MEDICARE ==
[2018-04-29] MEDS ORDERED: LACTATED RINGERS 1,000 ML IV ONE ×2 (11:38→14:56)
[2018-04-29] MEDS ORDERED: ceFAZolin 2 GM/50 ML 2 GM/50 ML BAG IV ONE (11:57)
--- NOTE | 2018-04-29 12:04 | ANESTHESIA ---
Pre-Anesthesia VS, & Labs - Diagnosis left proximal humerus fracture - Procedure open reduction internal fixation left proximal humerus Vital Signs: Temp Pulse Resp BP Pulse Ox 36.6 C 77 16 122/76 97 04/29/18 11:39 04/29/18 11:39 04/29/18 11:39 04/29/18 11:39 04/29/18 11:39 Height 5 ft 5 in Weight (kg) 63.8 kg Body Mass Index 22.4 - NPO >8 hours - Is Patient ?: No Home Medications and Allergies Metformin HCl [Fortamet] 500 mg PO HS 12/27/12 busPIRone [Buspar] 15 mg PO BID 12/27/12 Levothyroxine [Synthroid] 50 mcg PO QDAC 06/03/13 Lisinopril 40 mg PO DAILY 09/14/14 raNITIdine [Zantac] 300 mg PO QPM 09/14/14 Escitalopram Oxalate [Lexapro] 20 mg PO DAILY 05/16/17 clonazePAM [Clonazepam] 0.5 mg PO DAILY 04/18/18 Allergies/Adverse Reactions: Allergies Allergy/AdvReac Type Severity Reaction Status Date / Time Iodinated Contrast- Oral and Allergy throat Verified 04/29/18 11:49 IV Dye swelling [Iodinated Contrast Media - IV Dye] pneumococcal vaccine Allergy swelling Verified 04/29/18 11:49 [Pneumococcal Vaccine] Anes History & Medical History - Anesthetic History Anesthesia Complications: reports: No previous complications - Medical History Cardiovascular: reports: Hypertension, High cholesterol Pulmonary: reports: None Gastrointestinal: reports: Hepatitis, Other Urinary: reports: None Musculoskeletal: reports: Osteoarthritis, Chronic back pain Endocrine/Autoimmune: reports: HyPOthyroidism, Other Skin: reports: Herpes zoster Smoking Status: Former smoker - Surgical History Cardiothoracic: Lobectomy (right middle lobe resection for fungus infection) Gynecologic: Hysterectomy, Oophrectomy Orthopedic: Spine surgery Exam General: Alert Dental: WNL, Partials Upper Mouth Openin Fingerbreadth Neck Mobility: Normal Mallampati classification: II Thyromental Distance: greater than 6 cm Respiratory: Lungs clear Cardiovascular: Regular rate Mental/Cognitive Status: Alert/Oriented X3 Plan Anesthesia Type: General, Interscalene Block Consent for Procedure(s) Verified and Reviewed: Yes Code Status: Attempt Resuscitation ASA classification: 2-Mild systemic disease Is this case an emergency?: No
[2018-04-29] MEDS ORDERED: fentaNYL 100 MCG/2 ML VIAL IVP ONE (16:00)
[2018-04-29] MEDS ORDERED: ePHEDrine 50 MG/ML VIAL IVP ONE (16:00)
[2018-04-29] MEDS ORDERED: NEOSTIGMINE 1 MG/1 ML 10 ML MDV IVP ONE (16:00)
[2018-04-29] MEDS ORDERED: LIDOCAINE-MPF 2% 5 ML VIAL IM ONE (16:00)
[2018-04-29] MEDS ORDERED: PROPOFOL 200 MG/20 ML VIAL IVP ONE (16:00)
[2018-04-29] MEDS ORDERED: ROCURONIUM 50 MG/5 ML VIAL IVP ONE (16:00)
[2018-04-29] MEDS ORDERED: DEXAMETHASONE 4 MG/ML VIAL IVP ONE (16:00)
[2018-04-29] MEDS ORDERED: MIDAZOLAM 2 MG/2 ML VIAL IVP ONE (16:00)
[2018-04-29] MEDS ORDERED: GLYCOPYRROLATE 1 MG/5 ML VIAL IVP ONE (16:00)
[2018-04-29] MEDS ORDERED: ONDANSETRON 4 MG/2 ML VIAL IVP ONE (16:00)
--- NOTE | 2018-04-29 16:15 | ANESTHESIA PROCEDURE NOTE ---
Diagnosis: proximal humerus fracture Procedure: interscalene block for post op pain Consent for Procedure(s) Verified and Reviewed: Yes Height and Weight: Height 5 ft 5 in Weight (kg) 63.8 kg Body Mass Index 22.4 Vital Signs: Temp Pulse Resp BP Pulse Ox 36.6 C 77 16 122/76 97 04/29/18 11:39 04/29/18 11:39 04/29/18 11:39 04/29/18 11:39 04/29/18 11:39 Allergies Iodinated Contrast- Oral and IV Dye [Iodinated Contrast Media - IV Dye] Allergy (Verified 04/29/18 11:49) throat swelling pneumococcal vaccine [Pneumococcal Vaccine] Allergy (Verified 04/29/18 11:49) swelling Requesting Provider: Jonatan ZARAGOZA ASA classification: 2-Mild systemic disease Is this case an emergency?: No Anes. Monitoring and Equipment: Non-invasive BP, Pulse oximetery Anes. Procedure Start Time: 12:08 Anes. Procedure Stop Time: 12:12 Procedure Notes: ISB with US guidance, good view of plexus, 20cc Ropivicaine 0.5%/Bupivicaine 0.5%10cc/Decadron 4mg injected in 5cc increments with negative aspiration of blood between incremental doses of 5cc. Patient tolerated well, versed 2mg and fentanyl 100mcg given at 1205 for patient comfort. Sensory changes immediately, relief of pain and full loss of motor to biceps in 5 minutes. Patient's was in room throughout procedure.
[2018-04-29] MEDS ORDERED: oxyCODONE 5 MG TABLET PO PRN (18:37)
--- NOTE | 2018-04-29 18:37 | IMMEDIATE POSTOPERATIVE NOTE ---
Immediate Postoperative Note - Procedure Note Procedure Date: 04/29/18 Pre-Op Diagnosis: LEFT COMMINUTED 4PART PROXIMAL HUMERUS FRACTURE Procedure: ORIF LEFT PROXIMAL HUMERUS FRACTURE Post-Op Diagnosis: SAME Primary Surgeon: JOHNNY Assistant Front End Manager: ROB Anesthesia Type: General ET tube, Regional block Findings: Comminuted four-part proximal humerus fracture with significant displacement. Post procedure there is relative reduction of the head shaft angle and good stability of the construct. There is no evidence of any intra-articular hardware. Complications: No complications Plan of Care: Patient tolerated procedure well instrument and sponge counts correct patient transferred to the recovery room in stable condition. Patient's had case discussed with him intraoperative findings and procedure reviewed. Postoperative instructions reviewed as they had been preoperatively. Patient will be nonweightbearing left upper extremity should avoid active shoulder motion she may gently move elbow wrist and hand but generally otherwise be in sling. We would see her back in 10-14 days or sooner on an as-needed basis. She will be prescribed perioperative antibiotics and analgesic medications.
[2018-04-29 21:00] VITALS: BP 128/69
--- NOTE | 2018-04-30 02:06 | OPERATIVE REPORT ---
DATE OF SERVICE: 04/29/2018 Physician: Tommie Cheung MD PREOPERATIVE DIAGNOSIS: Left comminuted 4-part proximal humerus fracture. POSTOPERATIVE DIAGNOSIS: Left comminuted 4-part proximal humerus fracture. PROCEDURE PERFORMED: Open reduction and internal fixation, left proximal humerus fracture. SURGEON: Tommie Cheung MD SUPPLY CHAIN DESIGN MANAGER: None. ANESTHESIA PROVIDER: Shay Rivera CRNA. ANESTHESIA: General endotracheal with regional block. FLUIDS: 1000 mL lactated Ringer's. ORTHOPEDIC IMPLANTS: Synthes proximal humerus locking plate, short. ESTIMATED BLOOD LOSS: 150 mL. COMPRESSION DEVICE: Bilateral calf SCD boots. PREOPERATIVE ANTIBIOTICS: Weight-based IV Ancef. HISTORY OF PRESENT ILLNESS AND INDICATIONS: Patient is a 67-year-old female, left-hand dominant, who injured her left shoulder. She is found to have a comminuted proximal humerus fracture, 4-part with displacement. I spent a lengthy time with her and her in the office and then also following up in the preoperative area discussing the risks, benefits, alternatives. We talked about the operative decision making and the potential for attempted open reduction and internal fixation and need for conversion to total shoulder replacement or hemiarthroplasty. We also talked about potential for other surgical needs in the future depending on the status of her rotator cuff and other factors. We went into detail about the risks, benefits, and alternatives of operative and nonoperative treatment. The patient verbalizes understanding of the above verbalized and wishes to proceed with operative treatment. Informed consent was given. INTRAOPERATIVE FINDINGS: Patient noted to have significant comminuted 4-part proximal humerus fracture. There is some comminution of the greater tuberosity and some interstitial tearing of the supraspinatus. Subscapularis generally in good repair attached to the lesser tuberosity. The head is somewhat of a semilunar shape, with depths at some areas over a centimeter with some reasonable screw purchase. Post reduction of the head shaft angle and reduction of the tuberosities and plate fixation, the construct moves as a unit. The hardware is noted to be extraarticular, and there is a nice smooth range of motion. PROCEDURE: On 04/29/2018, patient is identified in the preoperative care unit. She identifies her left shoulder as the operative site; this is signed by the operating surgeon. The patient received preoperative weight-based IV antibiotics after regional block and then is brought to the operating room. She is placed supine on the operating table. Head, neck, and extremity placed in anatomically comfortable and safe positions to avoid peripheral nerve stretch and compression. The patient's head and neck are protected. The patient is placed in a beach chair position. SCD boots are in place. Bony prominences are gel padded. Left upper extremity is draped out, pre-scrubbed with chlorhexidine solution, and then prepped and draped in the usual sterile fashion. At this time, surgical pause identifies the left shoulder as operative site. At this point, a deltopectoral incision is made through skin and subcutaneous tissue, spreading dissection carried down to the deltopectoral interval, which is divided. The cephalic vein is brought laterally with the deltoid. The conjoined tendon has the clavipectoral fascia entered, and then a Raudel retractor is placed against this without over exuberant retraction to avoid injury to adjacent neurovascular structures, and then the opposite side is placed against the deltoid. At this point, fracture components are identified. Partially torn biceps is soft tissue tenodesed to the superior aspect of the pectoralis, as it is significantly subluxed and torn. At this point, the tuberosities are captured using #5 FiberWire suture. There is some interstitial tearing of the supraspinatus, though the #5 FiberWire was placed across this to capture the rotator cuff and reduce it to the bony piece as well. At this point the humeral head, despite multiple reductions, is noted to be quite posteriorly and ultimately with a reduction maneuver, the humeral head is brought towards the glenoid in an improved head shaft angle. At this point, some bony pieces are placed in the center of the head, and then the tuberosities are closed down. A plate is placed just lateral to the bicipital groove, and sutures are placed through this, thereby helping to maintain the reduction. K-wires also helped maintain the reduction at this time. With multiple reductions attempt, the oval hole is filled in the shaft portion of the plate with a cortical screw, followed by multiple proximal locking screws to maintain reduction not only of the tuberosities, but of the humeral head portion. Fluoroscopic image confirms acceptable position, at which point the proximal screws are placed in unicortical fashion. The distal screws are placed in bicortical fashion, taking care to avoid over exuberant penetration to avoid neurovascular injury. At this point, the tuberosities are then tied with their FiberWire over the plate to maintain reduction there. K-wires are removed. The construct moves as a unit and has extraarticular hardware. At this point, the wound is copiously irrigated. Hemostasis is achieved. Deltopectoral interval is closed using 0 Vicryl and 2-0 Vicryl. Copious irrigation is again performed with hemostasis, and then the skin is closed using layered fashion with 0 Vicryl, 2-0 Vicryl, and interrupted nylon suture. Skin is washed, dried, and a silver dressing is applied. Patient placed in a sling after axillary x-rays taken. Patient tolerated the procedure well. Instrument and sponge counts are correct. Patient is transferred to recovery room in stable condition. Patient will follow standard postoperative left proximal humerus ORIF protocol. She will avoid active shoulder motion. She will avoid weightbearing left upper extremity. She may gently move elbow, wrist, and hand with assistance. Generally she would stay in the sling but gently loosen it for elbow, wrist, and hand motion. She will follow up in 10-14 days. She will be on perioperative antibiotics and analgesic medications written. She denies any contraindication to medications. Patient's is contacted postop and case is discussed. His questions are answered. He verbalizes a thorough understanding and agreement and satisfaction with the plan as outlined to the patient preoperatively. TD: 04/29/2018 19:08 JANAY
== END 2018-04-29 21:20 | disposition home or self-care (01) ==
LOC: SDS 11:15 → OBS 18:58 → SDS 21:20
PROVIDERS: ATTEND Orthopaedic Surgery Sports Medicine
PROC: 0PSD04Z Reposition Left Humeral Head with Internal Fixation Device, Open Approach (ICD-10-PCS; principal; 2018-04-29 12:30)
DX: S42.212A Unspecified displaced fracture of surgical neck of left humerus, initial encounter for closed fracture (principal); S42.252A Displaced fracture of greater tuberosity of left humerus, initial encounter for closed fracture; I10 Essential (primary) hypertension; E11.9 Type 2 diabetes mellitus without complications; E03.9 Hypothyroidism, unspecified; F32.9 Major depressive disorder, single episode, unspecified; E78.00 Pure hypercholesterolemia, unspecified; Z87.891 Personal history of nicotine dependence
CPT/HCPCS: 23615; A9270; C1713; J0690; J7120

== ENCOUNTER 2018-07-06 13:41 | Outpatient (CLI) | payer MEDICARE ==
--- NOTE | 2018-07-07 08:47 | Mammography Report ---
Reason: SCREENING MAMMO Procedure Date: 07/06/2018 Accession Number: [id number] / [id number] Procedure: [facility] - Screening Mammo w/Alejandro CPT Code: FULL RESULT: EXAM: Screening Mammo w/Alejandro DATE: 07/06/2018 2:20 PM CLINICAL HISTORY: Screening encounter. History of nulliparity. History of bilateral core biopsy with benign pathology. TECHNIQUE: Bilateral CC and MLO views were obtained. A left laterally exaggerated view was obtained. COMPARISON: 06/19/2017 through 05/18/2014. FINDINGS: The breasts demonstrate extremely dense parenchyma bilaterally, limiting the sensitivity of mammography. There are coarse typically benign calcifications. No suspicious masses, clustered microcalcifications, or regions of architectural distortion are identified. IMPRESSION: Benign findings RECOMMENDATION: Routine annual screening unless otherwise clinically indicated. BIRADS CATEGORY 2: Benign findings STANDARD QUALIFYING STATEMENTS: 1. This examination was not reviewed with the aid of Computer-Aided Detection (CAD). 2. A negative or benign imaging report should not delay biopsy if clinically suspicious findings are present. Consider surgical consultation if warrented. More than 5% of cancers are not identified by imaging. 3. Dense breasts may obscure an underlying neoplasm. 4. This examination was reviewed with the aid of 3D breast imaging (tomosynthesis).
== END 2018-07-06 13:42 | disposition home or self-care (01) ==
LOC: DI 13:41
PROVIDERS: ATTEND Internal Medicine
DX: Z12.31 Encounter for screening mammogram for malignant neoplasm of breast (principal)
CPT/HCPCS: 77063; 77067

== ENCOUNTER 2018-07-11 12:16 | Outpatient (CLI) | payer MEDICARE ==
--- NOTE | 2018-07-13 06:51 | MRI Report ---
Reason: LUMBAR RADICULOPATHY Procedure Date: 07/11/2018 Accession Number: [id number] / [id number] Procedure: MRI - Lumbar Spine W/O CPT Code: FULL RESULT: EXAM: MRI LUMBAR SPINE WITHOUT CONTRAST EXAM DATE: 07/11/2018 01:04 PM. CLINICAL HISTORY: 67-year-old female. LUMBAR RADICULOPATHY. COMPARISON: None. TECHNIQUE: Multiplanar, multisequence T1-weighted and fluid-sensitive sequences of the lumbar spine from T12 to S1 without contrast. Other: None. FINDINGS: Spinal Canal: The conus terminates at L1. The conus medullaris and cauda equina are unremarkable. Alignment: No scoliosis or spondylolisthesis. Bone Marrow: Five [id number]-ozocubt lumbar vertebral bodies are assumed. No acute fractures or bone lesions. Chronic superior endplate compression fracture deformity of L1 with approximately 42% height loss. No bone marrow replacement. Disk Levels/Facets: T12-L1: Mild diffuse disk bulge. Mild anterior compression. No significant central canal or foraminal narrowing. L1-L2: Mild disk height loss and desiccation. Mild diffuse disk bulge. Mild to moderate right and mild left facet arthropathy. Mild central canal narrowing. Mild to moderate left and mild right foraminal narrowing. L2-L3: Moderate disk height loss and desiccation. Moderate diffuse disk bulge. Mild to moderate bilateral facet arthropathy and ligament flavum hypertrophy. Mild to moderate central canal narrowing. Mild to moderate right and mild left foraminal narrowing. L3-L4: Status post left hemilaminotomy. Moderate to severe disk height loss and desiccation. Moderate diffuse disk bulge. Moderate bilateral facet arthropathy. No residual central canal narrowing. Mild to moderate bilateral foraminal narrowing. L4-L5: Status post left hemilaminotomy. Moderate to severe bilateral facet arthropathy. No residual central canal narrowing. Mild to moderate bilateral foraminal narrowing. L5-S1: Moderate disk height loss and desiccation. Mild diffuse disk bulge. Moderate bilateral facet arthropathy. No significant central canal narrowing. Mild to moderate bilateral foraminal narrowing. Musculature: Normal. No edema or fatty atrophy. Other: The partially visualized retroperitoneum is unremarkable. IMPRESSION: 1. Mild to moderate multilevel degenerative spondylosis, as detailed above and summarized below. No evidence of acute fracture. Chronic superior endplate compression fracture deformity of L1 with approximately 42% height loss. No bone marrow edema. No cord signal abnormality. Status post prior left L3-L4 and left L4-L5 hemilaminotomies. 2. L1-L2: Mild central canal narrowing. Mild to moderate left and mild right foraminal narrowing. 3. L2-L3: Mild to moderate central canal narrowing. Mild to moderate right and mild left foraminal narrowing. 4. L3-L4: No residual central canal narrowing. Mild to moderate bilateral foraminal narrowing. 5. L4-L5: No residual central canal narrowing. Mild to moderate bilateral foraminal narrowing. 6. L5-S1: No significant central canal narrowing. Mild to moderate bilateral foraminal narrowing. Comment: The following findings are so common in adults without low back pain that while we report their presence, they must be interpreted with caution and in the context of the clinical situation. (Reference Balajik et al, Spine 2001) Prevalence of findings in patients without low back pain: Disk degeneration (any evidence): 92% Disk desiccation/T2 signal loss: 83% Disk height loss: 56% Disk bulge: 64% Disk protrusion: 32% Annular tear/high intensity zone: 38% RADIA
== END 2018-07-11 12:17 | disposition home or self-care (01) ==
LOC: DI 12:16
PROVIDERS: ATTEND Physical Medicine & Rehabilitation
DX: M47.26 Other spondylosis with radiculopathy, lumbar region (principal); M48.061 Spinal stenosis, lumbar region without neurogenic claudication; M48.56XA Collapsed vertebra, not elsewhere classified, lumbar region, initial encounter for fracture
CPT/HCPCS: 72148

== ENCOUNTER 2018-09-09 12:26 | Outpatient (CLI) | payer MEDICARE ==
--- NOTE | 2018-09-10 10:53 | CT Report ---
Reason: UNSPECIFIED FRACTURE OF UPPER END OF LEFT HUMERUS Procedure Date: 09/09/2018 Accession Number: [id number] / [id number] Procedure: CT - UPPER EXTREMITY WO - LT CPT Code: FULL RESULT: EXAM: LEFT ELBOW CT WITHOUT CONTRAST EXAM DATE: 09/09/2018 12:45 PM. CLINICAL HISTORY: Left proximal humerus fracture after patient failed ORIF. Evaluate for healing and bone stock. COMPARISON: 04/27/2018. TECHNIQUE: Thin-section axial images were acquired of the elbow without contrast. Post-processing: Coronal and sagittal reformats. Other: None. In accordance with CT protocol optimization, one or more of the following dose reduction techniques were utilized for this exam: automated exposure control, adjustment of mA and/or KV based on patient size, or use of iterative reconstructive technique. FINDINGS: Bones: The patient has had a prior surgical fixation of a proximal left humeral fracture. The fixation has been performed with a prominent sideplate and multiple interlocking screws. Since the prior examination, prominent callus formation is demonstrated and there does appear to be some bony union between the shaft and the head. However, evaluation is limited by streak artifact from the metallic hardware. There is new severe displacement of the greater tuberosity fracture fragments posteriorly and proximally. The fragments demonstrate posterior displacement by up to 4.3 cm and superior displacement by up to 2.4 cm. The acromion is type I. There is moderate osteopenia. Joints: Small fracture fragments are in the glenohumeral joint space. Musculature: Normal. No fatty atrophy. Other: Scattered areas of honeycombing and potential pulmonary microcyst formation are demonstrated in the left lung. Arterial calcifications indicate atherosclerosis. A large amount of fluid is in the subacromial/subdeltoid bursa. IMPRESSION: 1. Interval ORIF of the severe proximal humerus fracture. There appears to be some mild bony bridging between the shaft and the head. However, the greater tuberosity fracture fragments are now severely displaced. 2. Interstitial lung disease. Recommend pulmonology referral if this has previously not been evaluated. RADIA
== END 2018-09-09 12:27 | disposition home or self-care (01) ==
LOC: DI 12:26
PROVIDERS: ATTEND Orthopaedic Surgery Sports Medicine
DX: S42.202P Unspecified fracture of upper end of left humerus, subsequent encounter for fracture with malunion (principal)

== ENCOUNTER 2018-09-22 08:00 | Outpatient (CLI) | payer MEDICARE ==
[2018-09-22 08:52] LABS: ALBUMIN 4.4 g/dL (3.2-5.5); ALBUMIN/GLOBULIN RATIO 1.8 (1.0-2.2); BILIRUBIN,TOTAL 0.8 mg/dL (0.2-1.0); CALCIUM 9.8 mg/dL (8.5-10.3); CREATININE 0.9 mg/dL (0.4-1.0); TOTAL PROTEIN 6.9 g/dL (6.7-8.2)
[2018-09-22 09:02] LABS: EOSINOPHILS # (AUTO) 0.1 10^3/uL (0.0-0.7); EOSINOPHILS % (AUTO) 2.2 %; HGB - HEMOGLOBIN 12.8 g/dL (12.0-16.0); LYMPHOCYTES # (AUTO) 1.6 10^3/uL (1.5-3.5); LYMPHOCYTES % (AUTO) 35.9 %; MEAN CORPUSCULAR HEMOGLOBIN 31.8 pg (27.0-31.0); MEAN CORPUSCULAR VOLUME 90.9 fL (81.0-99.0); MEAN PLATELET VOLUME 6.9 fL (7.9-10.8); MONOCYTES # (AUTO) 0.3 10^3/uL (0.0-1.0); MONOCYTES % (AUTO) 7.4 %; NEUTROPHILS # (AUTO) 2.5 10^3/uL (1.5-6.6); NEUTROPHILS % (AUTO) 53.5 %; PLT - PLATELET COUNT 283 10^3/uL (130-450); RED BLOOD COUNT 4.01 10^6/uL (4.20-5.40); WHITE BLOOD COUNT 4.6 x10^3/uL (4.8-10.8)
[2018-09-22 09:34] LABS: HB2 TOTAL 13.1 g/dL; HEMOGLOBIN A1C 0.49 g/dL; HEMOGLOBIN A1C % 5.6 % (4.6-6.2)
== END 2018-09-22 23:59 | disposition home or self-care (01) ==
LOC: LAB 08:00
PROVIDERS: ATTEND Internal Medicine
DX: Z01.812 Encounter for preprocedural laboratory examination (principal); R73.01 Impaired fasting glucose; Z79.899 Other long term (current) drug therapy
CPT/HCPCS: 36415; 80053; 83036; 85025; 87640

== ENCOUNTER 2018-09-30 09:33 | Inpatient (IN) | payer MEDICARE ==
[2018-09-30] MEDS ORDERED: CEFAZOLIN SODIUM IN 0.9 % NACL 2 GM/100 ML BAG IV ONE (10:00)
[2018-09-30] MEDS ORDERED: LACTATED RINGERS 1,000 ML IV ONE ×2 (10:05→16:19)
--- NOTE | 2018-09-30 10:29 | ANESTHESIA ---
Pre-Anesthesia VS, & Labs - Diagnosis left proximal humerus fracture, failed ORIF - Procedure removal hardware left shoulder, total reverse shoulder Vital Signs: Temp Pulse Resp BP Pulse Ox 36.7 C 65 16 127/72 95 09/30/18 09:48 09/30/18 09:48 09/30/18 09:48 09/30/18 09:48 09/30/18 09:48 Height 5 ft 5 in Weight (kg) 65.7 kg Body Mass Index 22.4 - NPO >8 hours - Is Patient ?: No - Lab Results Current Lab Results: Laboratory Tests 09/30/18 10:04: POC Whole Bld Glucose 104 H Home Medications and Allergies Home Medications: Ambulatory Orders Ascorbic Acid [Vitamin C] 500 mg PO DAILY 09/29/18 Calcium Carbonate [Calcium] 600 mg PO DAILY 09/29/18 Cyanocobalamin (Vitamin B-12) [Vitamin B-12] 1,000 mcg PO DAILY 09/29/18 Guaifenesin [Mucinex] 600 mg PO PRN PRN 09/29/18 Milk Thistle 150 mg PO DAILY 09/29/18 Multivitamin [Daily Multiple Vitamin] 1 each PO DAILY 09/29/18 Romeo-3/Dha/Epa/Fish Oil [Fish Oil 1,000 mg Softgel] 1 each PO DAILY 09/29/18 Ubidecarenone/Vit E Acetate [Co Q-10 100 mg Softgel] 1 each PO DAILY 09/29/18 Buspirone HCl 30 mg PO DAILY 09/30/18 Levothyroxine Sodium 50 mg PO QDAC 09/30/18 Lisinopril 20 mg PO DAILY 09/30/18 raNITIdine HCl [Ranitidine HCl] 300 mg PO BID 09/30/18 Metformin HCl [Fortamet] 500 mg PO HS 12/27/12 busPIRone [Buspar] 30 mg PO DAILY 12/27/12 Levothyroxine [Synthroid] 50 mcg PO QDAC 06/03/13 Lisinopril 30 mg PO DAILY 09/14/14 raNITIdine [Zantac] 300 mg PO BID 09/14/14 Escitalopram Oxalate [Lexapro] 20 mg PO DAILY 05/16/17 Ascorbic Acid [Vitamin C] 500 mg PO DAILY 09/29/18 Calcium Carbonate [Calcium] 600 mg PO DAILY 09/29/18 Cyanocobalamin (Vitamin B-12) [Vitamin B-12] 1,000 mcg PO DAILY 09/29/18 Guaifenesin [Mucinex] 600 mg PO PRN PRN 09/29/18 Milk Thistle 150 mg PO DAILY 09/29/18 Multivitamin [Daily Multiple Vitamin] 1 each PO DAILY 09/29/18 Romeo-3/Dha/Epa/Fish Oil [Fish Oil 1,000 mg Softgel] 1 each PO DAILY 09/29/18 Ubidecarenone/Vit E Acetate [Co Q-10 100 mg Softgel] 1 each PO DAILY 09/29/18 Escitalopram Oxalate [Lexapro] 20 mg PO 09/30/18 Allergies/Adverse Reactions: Allergies Allergy/AdvReac Type Severity Reaction Status Date / Time Iodinated Contrast- Oral and Allergy throat Verified 09/29/18 09:12 IV Dye swelling [Iodinated Contrast Media - IV Dye] pneumococcal vaccine Allergy swelling Verified 04/29/18 11:49 [Pneumococcal Vaccine] ketamine AdvReac muscle Verified 09/29/18 09:12 aches for days Anes History & Medical History - Anesthetic History Anesthesia Complications: reports: Other-see comment (muscle aches) - Medical History Cardiovascular: reports: Hypertension Pulmonary: reports: Other Gastrointestinal: reports: Hiatal hernia, Hepatitis, Other Urinary: reports: None Musculoskeletal: reports: Osteoarthritis, Other Endocrine/Autoimmune: reports: Type 2 diabetes, HyPOthyroidism Skin: reports: Other Smoking Status: Former smoker - Surgical History General: Colonoscopy, EGD Cardiothoracic: Other Gynecologic: Hysterectomy Orthopedic: Spine surgery Exam General: Alert Dental: WNL Mouth Opening: Greater than 4 Fingerbreadths Mallampati classification: I Thyromental Distance: greater than 6 cm Respiratory: Lungs clear Cardiovascular: Regular rate, Normal S1, Normal S2 Mental/Cognitive Status: Alert/Oriented X3 Plan Anesthesia Type: General Consent for Procedure(s) Verified and Reviewed: Yes Code Status: Attempt Resuscitation ASA classification: 2-Mild systemic disease Is this case an emergency?: No
[2018-09-30] MEDS ORDERED: ACETAMINOPHEN 1,000 MG/100 ML 100 ML IV ONE (10:51)
[2018-09-30] MEDS ORDERED: CELECOXIB 100 MG CAPSULE PO ONE (10:51)
[2018-09-30] MEDS ORDERED: GABAPENTIN 400 MG CAPSULE ONE (10:51)
[2018-09-30] MEDS ORDERED: BUPIVACAINE 0.25%-EPI 1:200000 PF 30 ML VIAL ONE (11:26)
[2018-09-30] MEDS ORDERED: ROPIVACAINE 0.5% PF 20 ML AMPULE EP ONE (11:30)
[2018-09-30] MEDS ORDERED: TRANEXAMIC ACID 1,000 MG/10 ML VIAL IV ONE (11:30)
[2018-09-30] MEDS ORDERED: ceFAZolin 1 GM VIAL IV ONE (11:30)
[2018-09-30] MEDS ORDERED: PROPOFOL 200 MG/20 ML VIAL IVP ONE (11:30)
[2018-09-30] MEDS ORDERED: SODIUM CHLORIDE 0.9% 10 ML VIAL IV ONE (11:30)
[2018-09-30] MEDS ORDERED: LIDOCAINE-MPF 2% 5 ML VIAL IM ONE (11:30)
--- NOTE | 2018-09-30 16:16 | IMMEDIATE POSTOPERATIVE NOTE ---
Immediate Postoperative Note - Procedure Note Procedure Date: 09/30/18 Pre-Op Diagnosis: Left 4 part proximal humerus fracture, failed ORIF, retained hardware Procedure: Left reverse total shoulder arthroplasty, Removal of hardware Deep Post-Op Diagnosis: Same Marine Meteorologist: None Anesthesia Type: General ET tube, Regional block Complications: No complications Estimated Blood Loss (in cc): 100 Plan of Care: Patient tolerated suture well instrument and sponge counts correct patient transferred to recovery room in stable condition she would be admitted overnight for analgesics and neurovascular checks. If eating ambulating comfortable and cleared anesthesia would be discharged to home care with tomorrow.
[2018-09-30] MEDS ORDERED: MORPHINE 2 MG/ML SYRINGE IVP PRN (16:17)
[2018-09-30] MEDS ORDERED: PROCHLORPERAZINE 10 MG/2 ML VIAL IVP PRN (16:17)
[2018-09-30] MEDS ORDERED: ACETAMINOPHEN 1,000 MG/100 ML 100 ML IV PRN (16:17)
[2018-09-30] MEDS ORDERED: SODIUM CHLORIDE FLUSH 0.9% 10 ML SYRINGE IVP PRN (16:17)
[2018-09-30] MEDS ORDERED: ACETAMINOPHEN 325 MG TABLET PO PRN (16:17)
--- NOTE | 2018-09-30 16:42 | XRAY Report ---
Reason: ORIF POST OP Procedure Date: 09/30/2018 Accession Number: [id number] / [id number] Procedure: XR - Shoulder 2 View LT CPT Code: FULL RESULT: EXAM: FLUOROSCOPIC GUIDANCE EXAM DATE: 09/30/2018 04:16 PM. CLINICAL HISTORY: Artificial replacement of the left shoulder. COMPARISON: None. FINDINGS: Intraprocedural fluoroscopy was provided for guidance and anatomic localization. See procedure report for further details. IMPRESSION: Fluoroscopic guidance provided for orthopedic surgery service. Total fluoroscopy time: Not given. Number of images: 3. RADIA
[2018-09-30] MEDS: ceFAZolin 2 GM in SODIUM CHLORIDE 0.9% MINIBAG 100 ML IV SCH (17:36)
[2018-09-30] MEDS: ASPIRIN 325 MG TABLET PO SCH (17:36)
[2018-09-30] MEDS: SODIUM CHLORIDE FLUSH 0.9% 10 ML SYRINGE IVP SCH (17:37)
[2018-09-30] MEDS: oxyCODONE 5 MG TABLET PO PRN (18:56)
[2018-09-30] MEDS: HYDROcod/ACETAM 5/325 MG TABLET PO PRN (22:14)
[2018-10-01] MEDS: ceFAZolin 2 GM in SODIUM CHLORIDE 0.9% MINIBAG 100 ML IV SCH (01:21)
[2018-10-01] MEDS: oxyCODONE 5 MG TABLET PO PRN ×2 (01:22→06:36)
[2018-10-01] MEDS: SODIUM CHLORIDE FLUSH 0.9% 10 ML SYRINGE IVP SCH ×2 (01:23→08:49)
[2018-10-01] MEDS: HYDROcod/ACETAM 5/325 MG TABLET PO PRN ×2 (04:05→10:52)
--- NOTE | 2018-10-01 07:20 | Discharge Plan ---
Discharge Plan Disposition: 01 Home, Self Care Prescriptions: oxyCODONE [Roxicodone] 5 mg PO Q4HR PRN #60 tablet PRN Reason: Pain Diet: Regular Activity Restrictions: NWB LEFT UPPER EXT, SLING, MAY MOVE ELBOW WRIST HAND, LIMIT SHOULDER MOTION Shower Restrictions: Yes (NO SHOWER 3 DAYS, THEN MAY SHOWER AND KEEP DRESSING/WOUND DRY) Driving Restrictions: Yes (NO DRIVING) No Smoking: If you smoke, Please STOP! Call for help. Follow-up with: Gail Heard MD [Primary Care Provider] -
[2018-10-01 07:52] VITALS: BP 105/75
[2018-10-01] MEDS: ASPIRIN 325 MG TABLET PO SCH (08:49)
[2018-10-01] MEDS ORDERED: ACETAMINOPHEN 1,000 MG/100 ML 100 ML IV ONE (11:30)
[2018-10-01] MEDS ORDERED: METOPROLOL 5 MG/5 ML VIAL IVP ONE (11:30)
[2018-10-01] MEDS ORDERED: MIDAZOLAM 2 MG/2 ML VIAL IVP ONE (11:30)
[2018-10-01] MEDS ORDERED: ePHEDrine 50 MG/ML VIAL IVP ONE (11:30)
[2018-10-01] MEDS ORDERED: ONDANSETRON 4 MG/2 ML VIAL IVP ONE (11:30)
[2018-10-01] MEDS ORDERED: GLYCOPYRROLATE 1 MG/5 ML VIAL IVP ONE (11:30)
[2018-10-01] MEDS ORDERED: DEXAMETHASONE 4 MG/ML VIAL IVP ONE (11:30)
[2018-10-01] MEDS ORDERED: PHENYLEPHRINE 50 MG/5 ML VIAL IV ONE (11:30)
[2018-10-01] MEDS ORDERED: fentaNYL 100 MCG/2 ML VIAL IVP ONE (11:30)
--- NOTE | 2018-10-07 17:28 | DISCHARGE SUMMARY ---
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 admit over night pain mgt, abx, nv checks. pt with pain controlled with analgesics and block. dc'd to home with family care POD 1 Patient was expected to be discharged or transferred withing 96hrs. - ALLERGIES Allergies/Adverse Reactions: Allergies Allergy/AdvReac Type Severity Reaction Status Date / Time Iodinated Contrast- Oral and Allergy throat Verified 09/29/18 09:12 IV Dye swelling [Iodinated Contrast Media - IV Dye] pneumococcal vaccine Allergy swelling Verified 04/29/18 11:49 [Pneumococcal Vaccine] ketamine AdvReac muscle Verified 09/29/18 09:12 aches for days - MEDICATIONS Home Medications: Ambulatory Orders Medication Instructions Recorded Confirmed Metformin HCl [Fortamet] 500 mg PO HS 12/27/12 09/30/18 Escitalopram Oxalate [Lexapro] 20 mg PO DAILY 05/16/17 09/29/18 Ascorbic Acid [Vitamin C] 500 mg PO DAILY 09/29/18 09/30/18 Calcium Carbonate [Calcium] 600 mg PO DAILY 09/29/18 09/30/18 Cyanocobalamin (Vitamin B-12) 1,000 mcg PO DAILY 09/29/18 09/30/18 [Vitamin B-12] Guaifenesin [Mucinex] 600 mg PO PRN PRN 09/29/18 09/30/18 Milk Thistle 150 mg PO DAILY 09/29/18 09/30/18 Multivitamin [Daily Multiple 1 each PO DAILY 09/29/18 09/30/18 Vitamin] [place]-3/Dha/Epa/Fish Oil [Fish Oil 1 each PO DAILY 09/29/18 09/30/18 1,000 mg Softgel] Ubidecarenone/Vit E Acetate [Co 1 each PO DAILY 09/29/18 09/29/18 Q-10 100 mg Softgel] Buspirone HCl 30 mg PO DAILY 09/30/18 09/30/18 Levothyroxine Sodium 50 mg PO QDAC 09/30/18 09/30/18 Lisinopril 20 mg PO DAILY 09/30/18 09/30/18 raNITIdine HCl [Ranitidine HCl] 300 mg PO BID 09/30/18 09/30/18 oxyCODONE [Roxicodone] 5 mg PO Q4HR PRN #60 tablet 10/01/18 - PHYSICAL EXAM AT DISCHARGE General Appearance: positive: No acute distress Physical Exam Other/Comments: LUE: NVID. dressing cdi. sling in place. comfortable elbow wrist hand motion. arm/forwarm soft. - FOLLOW UP Follow Up: 10-14 days [facility] or sooner PRN - TIME SPENT Time Spent in Discharge (Minutes): 20"
== END 2018-10-01 12:55 | disposition home or self-care (01) | DRG 566 ==
LOC: MS2 09:33 → SDS 09:33 → UNDOADMIN 09:33 → EDSTATUS 10:30 → MS2 15:46 → ICU 15:46 → UNDODISIN 10-01 12:55
PROVIDERS: ADMIT Orthopaedic Surgery Sports Medicine; ATTEND Orthopaedic Surgery Sports Medicine
PROC: 0PPD04Z Removal of Internal Fixation Device from Left Humeral Head, Open Approach (ICD-10-PCS; 2018-09-30)
PROC: 0RRK00Z Replacement of Left Shoulder Joint with Reverse Ball and Socket Synthetic Substitute, Open Approach (ICD-10-PCS; principal; 2018-09-30 10:30)
DX: S42.252 Displaced fracture of greater tuberosity of left humerus (principal); S42.202P Unspecified fracture of upper end of left humerus, subsequent encounter for fracture with malunion; S42.292K Other displaced fracture of upper end of left humerus, subsequent encounter for fracture with nonunion; M75.42 Impingement syndrome of left shoulder; I10 Essential (primary) hypertension; Z79.899 Other long term (current) drug therapy
CPT/HCPCS: 20680; 23472; 73030; 87070; 87150; 87205; A9270; J0131; J0690; J2270; J7120

== ENCOUNTER 2018-11-10 13:38 | Outpatient (CLI) | payer MEDICARE ==
--- NOTE | 2018-11-10 14:37 | DEXA Report ---
Reason: POST MENOPAUSAL Procedure Date: 11/10/2018 Accession Number: [id number] / [id number] Procedure: DEX - Dexa Spine and/or Hip CPT Code: FULL RESULT: EXAM: Dexa Spine and/or Hip DATE: 11/10/2018 2:23 PM CLINICAL HISTORY: POST MENOPAUSAL History of steroid use, thyroid replacement therapy, and treatment for cancer. History of Boniva and Actonel use. TECHNIQUE: Dual energy x-ray absorptiometry (DXA) was performed on a [employer] System. Regions measured are the AP Spine, femoral neck, and if needed forearm. COMPARISON: 05/17/2013 In accordance with the International Society for Clinical Densitometry (ISCD) guidelines, data from previous exams may be reanalyzed using current recommendations and techniques. This is done to allow a more accurate basis for comparison with the current study. FINDINGS: The data for the lumbar spine is as follows: BMD (g/cm/cm) T-SCORE Z-SCORE REGION L1 1.237 0.9 2.5 L2 1.248 0.4 2.0 L3 1.240 0.3 1.9 L4 1.127 -0.6 1.0 TOTAL 1.209 0.2 1.8 NOTE: All evaluable vertebrae are used for classification The data for the hip is as follows: BMD (g/cm/cm) T-SCORE Z-SCORE REGION Neck 0.939 -0.7 0.8 TOTAL 0.970 -0.3 1.0 NOTE: The femoral neck or total proximal femur, whichever is lowest, is used for classification. IMPRESSION: THE WHO CLASSIFICATION BASED ON THE INTERNATIONAL REFERENCE STANDARD IS NORMAL. THE FRACTURE RISK IS NOT INCREASED. RECOMMENDATION: Patients with diagnosis of osteoporosis or osteopenia should have regular bone mineral density assessment. For those eligible for Medicare, routine testing is allowed once every 2 years. Testing frequency can be increased for patients who have rapidly progressing disease or for those who are receiving medical therapy to restore bone mass. COMMENT: World Health Organization (WHO) definitions for osteoporosis and osteopenia: NORMAL BMD: T-score at -1.0 or higher, fracture risk is low OSTEOPENIA BMD: T-score between -1.0 and -2.5, fracture risk is increased. OSTEOPOROSIS BMD: T-score at -2.5 or lower, fracture risk is high. National Osteoporosis Foundation recommends: 1. Obtain adequate dietary calcium (at least 1200 mg per day) and vitamin D (400-800 international units per day). 2. Participate, as appropriate, in regular weightbearing and muscle-strengthening exercise. 3. Avoid tobacco use and reduce alcohol and caffeine intake. 4. For more detailed information see the website at www.NOF.org.
== END 2018-11-10 13:39 | disposition home or self-care (01) ==
LOC: DI 13:38
PROVIDERS: ATTEND Internal Medicine
DX: Z13.820 Encounter for screening for osteoporosis (principal); Z78.0 Asymptomatic menopausal state
CPT/HCPCS: 77080

== ENCOUNTER 2019-11-10 15:03 | Outpatient (CLI) | payer MEDICARE ==
--- NOTE | 2019-11-11 11:11 | Mammography Report ---
BILATERAL DIGITAL SCREENING MAMMOGRAM 3D/2D: 11/10/2019 CLINICAL: Routine screening. Comparison is made to exams dated: 07/06/2018 mammogram, 06/19/2017 mammogram, and 06/06/2016 mammogram - [facility]. The tissue of both breasts is extremely dense, which lowers the sens itivity of mammography. No significant masses, calcifications, or other findings are seen in either breast. There has been no significant interval change. IMPRESSION: NEGATIVE There is no mammographic evidence of malignancy. A 1 year screening mammogram is recommended. This exam was interpreted at Station ID: [id number]. NOTE: For mammograms, a report in lay terms will be sent to the patient. Approximately 15% of breast malignancies will not be visualized mammographically. In the management of a palpable breast mass, a negative mammogram must not discourage biopsy of a clinically suspicious lesion. Electronically Signed By: Faiza ellison/misha:11/11/2019 10:03:32 ACR BI-RADS Category 1: Negative 3341F PARENCHYMAL PATTERN: (VD) - The breast(s) demonstrate(s) extremely dense parenchyma, limiting the sen sitivity of mammography. BI-RADS CATEGORY: (1) - 1 RECOMMENDATION: (ANNUAL) - Recommend routine annual screening mammography. [id number] 1 year screening LATERALITY: (B)
== END 2019-11-10 15:04 | disposition home or self-care (01) ==
LOC: DI 15:03
PROVIDERS: ATTEND Internal Medicine
DX: Z12.31 Encounter for screening mammogram for malignant neoplasm of breast (principal)
CPT/HCPCS: 77063; 77067

== ENCOUNTER 2020-07-10 10:25 | Outpatient (CLI) | payer MEDICARE ==
--- NOTE | 2020-07-10 11:50 | XRAY Report ---
PROCEDURE: Hip w/Pelvis 2-3V LT INDICATIONS: LT HIP PAIN TECHNIQUE: AP pelvis with frog-leg lateral view of the left hip. COMPARISON: Right hip radiographs 09/14/2017 FINDINGS: Bones: No acute fractures or dislocations. Pelvic ring appears intact. No suspicious bony lesions. There is moderate narrowing of the left hip joint space with marginal osteophyte formation. Mild de generative changes are seen in the right hip. Degenerative changes are seen in the included spine. Soft tissues: The visualized bowel gas pattern is normal. No suspicious soft tissue calcifications. IMPRESSION: Moderate left hip osteoarthrosis. Mild degenerative changes in the right hip. Reviewed by: Carlos Penaloza MD on 07/10/2020 11:48 AM PST Approved by: Carlos Penaloza MD on 07/10/2020 11:48 AM PST Station ID: [id number]
== END 2020-07-10 10:26 | disposition home or self-care (01) ==
LOC: DI 10:25
PROVIDERS: ATTEND Internal Medicine
DX: M16.0 Bilateral primary osteoarthritis of hip (principal)

== ENCOUNTER 2020-11-23 10:06 | Outpatient (CLI) | payer MEDICARE ==
--- NOTE | 2020-11-27 13:20 | Mammography Report ---
BILATERAL DIGITAL SCREENING MAMMOGRAM 3D/2D: 11/23/2020 CLINICAL: Routine screening. Comparison is made to exams dated: 07/06/2018 mammogram, 11/10/2019 mammogram, 06/19/2017 mammogram, and 06/06/2016 mammogram - [facility]. The tissue of both breasts is extremely dense, w hich lowers the sensitivity of mammography. No significant masses, calcifications, or other findings are seen in either breast. There has been no significant interval change. IMPRESSION: NEGATIVE There is no mammographic evidence of malignancy. A 1 year screening mammogram is recommended. This exam was interpreted at Station ID: [id number]. NOTE: For mammograms, a report in lay terms will be sent to the patient. Approximately 15% of breast malignancies will not be visualized mammographically. In the management of a palpable breast mass, a negative mammogram must not discourage biopsy of a clinically suspicious lesion. Electronically Signed By: Faiza ellison/penrad:11/24/2020 16:45:11 ACR BI-RADS Category 1: Negative 3341F PARENCHYMAL PATTERN: (VD) - The breast(s) demonstrate(s) extremely dense parenchyma, limiting the sen sitivity of mammography. BI-RADS CATEGORY: (1) - 1 RECOMMENDATION: (ANNUAL) - Recommend routine annual screening mammography. [id number] 1 year screening LATERALITY: (B)
== END 2020-11-23 10:07 | disposition home or self-care (01) ==
LOC: DI 10:06
PROVIDERS: ATTEND Internal Medicine
DX: Z12.31 Encounter for screening mammogram for malignant neoplasm of breast (principal)

== ENCOUNTER 2021-07-11 12:23 | Outpatient (CLI) | payer MEDICARE ==
[2021-07-11 13:14] LABS: ALBUMIN 4.3 g/dL (3.2-5.5); ALBUMIN/GLOBULIN RATIO 1.3 (1.0-2.2); ALKALINE PHOSPHATASE 67 IU/L (42-121); ALT ALANINE AMINOTRANSFERASE 26 IU/L (10-60); AST ASPARTATE AMINOTRANSFERASE 27 IU/L (10-42); BILIRUBIN,TOTAL 0.8 mg/dL (0.2-1.0); BUN - BLOOD UREA NITROGEN 18 mg/dL (6-20); CALCIUM 9.6 mg/dL (8.5-10.3); CARBON DIOXIDE - CO2 27 mmol/L (21-32); CHLORIDE 101 mmol/L (101-111); CHOLESTEROL 195 mg/dL; CREATININE 1.2 mg/dL (0.4-1.0); GFR - MDRD 44 (>89); GLUCOSE 101 mg/dL (70-100); HDL CHOLESTEROL 49 mg/dL; LDL CHOLESTEROL,CALCULATED 127 mg/dL; LDL/HDL RATIO 2.6 (<4.4); POTASSIUM 4.1 mmol/L (3.5-5.0); SODIUM 138 mmol/L (135-145); TOTAL PROTEIN 7.7 g/dL (6.7-8.2); TRIGLYCERIDES 96 mg/dL; VLDL CHOLESTEROL 19 mg/dL
[2021-07-11 13:17] LABS: ESTIMATED AVERAGE GLUCOSE 105 mg/dL (70-100); HEMOGLOBIN A1c% 5.3 % (4.27-6.07); THYROID STIMULATING HORMONE 2.97 uIU/mL (0.34-5.60)
[2021-07-12 11:39] LABS: BASOPHILS % (AUTO) 0.9 %; EOSINOPHILS # (AUTO) 0.2 10^3/uL (0.0-0.7); EOSINOPHILS % (AUTO) 3.4 %; HCT - HEMATOCRIT 40.2 % (37.0-47.0); HGB - HEMOGLOBIN 13.4 g/dL (12.0-16.0); LYMPHOCYTES % (AUTO) 41.7 %; MEAN CORPUSCULAR HEMOGLOBIN 31.9 pg (27.0-31.0); MEAN CORPUSCULAR HGB CONC 33.3 g/dL (32.0-36.0); MEAN CORPUSCULAR VOLUME 95.7 fL (81.0-99.0); MEAN PLATELET VOLUME 9.5 fL (7.9-10.8); MONOCYTES # (AUTO) 0.3 10^3/uL (0.0-1.0); MONOCYTES % (AUTO) 6.2 %; NEUTROPHILS # (AUTO) 2.2 10^3/uL (1.5-6.6); NEUTROPHILS % (AUTO) 47.6 %; PLT - PLATELET COUNT 257 10^3/uL (130-450); RED CELL DISTRIBUTION WIDTH 13.7 % (12.0-15.0); WHITE BLOOD COUNT 4.7 x10^3/uL (4.8-10.8)
== END 2021-07-11 12:24 | disposition home or self-care (01) ==
LOC: LAB.R 12:23
PROVIDERS: ATTEND Internal Medicine
DX: Z00.00 Encounter for general adult medical examination without abnormal findings (principal); F41.9 Anxiety disorder, unspecified; K22.70 Barrett's esophagus without dysplasia; F32.A Depression, unspecified; B18.2 Chronic viral hepatitis C; A60.9 Anogenital herpesviral infection, unspecified; M25.559 Pain in unspecified hip; R73.9 Hyperglycemia, unspecified; I10 Essential (primary) hypertension; E03.9 Hypothyroidism, unspecified; M19.90 Unspecified osteoarthritis, unspecified site; M85.80 Other specified disorders of bone density and structure, unspecified site; Z13.6 Encounter for screening for cardiovascular disorders; Z79.899 Other long term (current) drug therapy
CPT/HCPCS: 80053; 80061; 81599; 82105; 82607; 83036; 83721; 84443; 85025

== ENCOUNTER 2021-11-16 11:22 | Outpatient (CLI) | payer MEDICARE ==
--- NOTE | 2021-11-19 08:07 | Mammography Report ---
BILATERAL DIGITAL SCREENING MAMMOGRAM 3D/2D: 11/16/2021 CLINICAL: Routine screening. Comparison is made to exams dated: 11/23/2020 mammogram, 11/10/2019 mammogram, 07/06/2018 mammogram, 06/19 mammogram, and 06/06/2016 mammogram - [facility]. The tissue of both breasts is extremely dense, which lowers the sensitivity of mammography. No significant masses, calcifications, or other findings are seen in either breast. There has been no significant interval change. IMPRESSION: NEGATIVE There is no mammographic evidence of malignancy. A 1 year screening mammogram is recommended. Based on the Tyrer Cuzick model (a risk assessment model) the patients lifetime risk is 10.1% and he r 10 year risk is 6.5%. According to the ACR, ACS, and NCCN guidelines, an annual breast MRI exam keshia ng with mammogram is recommended if the patients lifetime risk is 20% or greater. This exam was interpreted at Station ID: [id number]. NOTE: For mammograms, a report in lay terms will be sent to the patient. Approximately 15% of breast malignancies will not be visualized mammographically. In the management of a palpable breast mass, a negative mammogram must not discourage biopsy of a clinically suspicious lesion. Electronically Signed By: Rodger Leonard M.D. [facility]/penrad:11/16/2021 17:46:48 ACR BI-RADS Category 1: Negative 3341F PARENCHYMAL PATTERN: (VD) - The breast(s) demonstrate(s) extremely dense parenchyma, limiting the sen sitivity of mammography. BI-RADS CATEGORY: (1) - 1 RECOMMENDATION: (ANNUAL) - Recommend routine annual screening mammography. [id number] 1 year screening LATERALITY: (B)
== END 2021-11-16 11:23 | disposition home or self-care (01) ==
LOC: DI 11:22
PROVIDERS: ATTEND Internal Medicine
DX: Z12.31 Encounter for screening mammogram for malignant neoplasm of breast (principal)

== ENCOUNTER 2022-02-07 15:07 | Outpatient (CLI) | payer MEDICARE ==
[2022-02-07 15:48] LABS: GLUCOSE, URINE (UA) NEGATIVE (NEGATIVE); KETONES,URINE (UA) TRACE mg/dL (NEGATIVE); LEUKOCYTE ESTERASE, URINE LARGE (NEGATIVE); NITRITE,URINE NEGATIVE (NEGATIVE); OCCULT BLOOD,URINE SMALL (NEGATIVE); PROTEIN,URINE 30 mg/dL (NEGATIVE); UROBILINOGEN,URINE 0.2 (NORMAL) E.U./dL (NORMAL)
[2022-02-07 16:02] LABS: BILIRUBIN,URINE NEGATIVE (NEGATIVE); CLARITY,URINE HAZY (CLEAR); ICTOTEST,URINE NEGATIVE
[2022-02-07 16:04] LABS: BACTERIA,URINE Many /HPF (None Seen); SQUAMOUS EPITHELIAL CELL,UR NONE SEEN (<= Few); WBC,URINE >25 /HPF (0-5)
== END 2022-02-07 23:59 | disposition home or self-care (01) ==
LOC: LAB.R 15:07
PROVIDERS: ATTEND Internal Medicine
DX: R39.9 Unspecified symptoms and signs involving the genitourinary system (principal)
CPT/HCPCS: 81001; 81003; 87086; 87181

== ENCOUNTER 2022-12-11 14:43 | Outpatient (CLI) | payer MEDICARE ==
--- NOTE | 2022-12-12 09:21 | Mammography Report ---
BILATERAL DIGITAL SCREENING MAMMOGRAM 3D/2D: 12/11/2022 CLINICAL: Routine screening. Comparison is made to exams dated: 11/16/2021 mammogram, 11/23/2020 mammogram, 11/10/2019 mammogram, 07/06 mammogram, 06/19/2017 mammogram, and 06/06/2016 mammogram - [facility]. Both breasts are heterogeneously dense, which may obscure small masses (category c / 51-75% glandular tissue). No significant masses, calcifications, or other findings are seen in either breast. There has been no significant interval change. IMPRESSION: NEGATIVE There is no mammographic evidence of malignancy. A 1 year screening mammogram is recommended. Based on the Tyrer Cuzick model (a risk assessment model) the patients lifetime risk is 6.0% and her 10 year risk is 4.5%. According to the ACR, ACS, and NCCN guidelines, an annual breast MRI exam yariel g with mammogram is recommended if the patients lifetime risk is 20% or greater. This exam was interpreted at Station ID: [id number]. NOTE: For mammograms, a report in lay terms will be sent to the patient. Approximately 15% of breast malignancies will not be visualized mammographically. In the management of a palpable breast mass, a negative mammogram must not discourage biopsy of a clinically suspicious lesion. Electronically Signed By: Araceli vazquez/misha:12/11/2022 17:17:56 letter sent: No_Letter ACR BI-RADS Category 1: Negative 3341F PARENCHYMAL PATTERN: (D) - The breast(s) demonstrate(s) heterogeneously dense fibroglandular landry patel. BI-RADS CATEGORY: (1) - 1 Mammogram [id number] 1 year screening LATERALITY: (B)
== END 2022-12-11 14:44 | disposition home or self-care (01) ==
LOC: DI 14:43
PROVIDERS: ATTEND Internal Medicine
DX: Z12.31 Encounter for screening mammogram for malignant neoplasm of breast (principal)

== ENCOUNTER 2023-06-30 07:59 | Outpatient (CLI) | payer MEDICARE ==
--- NOTE | 2023-07-01 08:12 | Ultrasound Report ---
PROCEDURE: Abdomen Complete INDICATIONS: CIRRHOSIS OF LIVER TECHNIQUE: Real-time scanning was performed of the abdominal and retroperitoneal organs, with image documentatio n. COMPARISON: Ultrasound abdomen, 02/17/2014. FINDINGS: Liver: Liver is normal in size and demonstrates coarse, increased echotexture. Main portal vein jean-claude ures 8.2 mm and demonstrates hepatopedal flow. Gallbladder: Unremarkable. Biliary ducts: Intrahepatic bile ducts are non-dilated. Extrahepatic bile duct caliber measures 5.0 mm. Normal is 6-7 mm or less in diameter, or 10 mm or less post-cholecystectomy. Pancreas: Visualized portions of the pancreas are sonographically normal. Spleen: Spleen is normal in size and homogeneous in echotexture measuring 8.1 x 3.4 x 2.9 cm. Kidneys: Kidneys are normal in size and echotexture. Right kidney measures 10.1 cm long; left kidne y measures 10.2 cm long. No hydronephrosis or nephrolithiasis. No solid masses. No complex renal cy stic lesions which require follow-up. Aorta: Visualized aorta is normal in caliber at less than 3 cm. Iliacs: Proximal common iliac arteries are normal in caliber at less than 2.5 cm. IVC: Intrahepatic inferior vena cava is patent. Miscellaneous: No free abdominal fluid. IMPRESSION: 1. Coarse, increased hepatic echotexture in keeping with cirrhosis. Reviewed by: Charli Mckeon MD on 07/01/2023 8:11 AM [facility] Approved by: Charli Mckeon MD on 07/01/2023 8:11 AM PST Station ID: [id number]
== END 2023-06-30 08:00 | disposition home or self-care (01) ==
LOC: DI 07:59
PROVIDERS: ATTEND Internal Medicine Gastroenterology
DX: K74.69 Other cirrhosis of liver (principal)

== ENCOUNTER 2023-08-31 17:24 | Outpatient (CLI) | payer MEDICARE | END 2023-08-31 23:59 | disposition EMS.NT | LOC: EMS 17:24 | DX: S01.81XA Laceration without foreign body of other part of head, initial encounter (principal); W18.39XA Other fall on same level, initial encounter; Y92.009 Unspecified place in unspecified non-institutional (private) residence as the place of occurrence of the external cause; F10.90 Alcohol use, unspecified, uncomplicated ==

== ENCOUNTER 2023-08-31 18:08 | Emergency (ER) | payer MEDICARE ==
--- NOTE | 2023-08-31 18:21 | ED Physician Documentation ---
History of Present Illness - Stated complaint Stated Complaint: HEAD LAC - Chief complaint Chief Complaint: Trauma Hd/Nk - History obtained from History obtained from: Patient - History of Present Illness Timing: Today Pain level max: 0 Pain level now: 0 - Additonal information Additional information: 72-year-old female states that she has been drinking tonight, is intoxicated, tripped fell forward and struck her head on the concrete. Has a laceration of the forehead. No loss of consciousness. No neck or back pain. EMS was called to the scene. She refused transport. Family drove her to the emergency department. Tetanus up-to-date. No loss of consciousness. No seizure activity. No vomiting. Patient is not anticoagulated. Review of Systems Constitutional: denies: Fever, Chills Respiratory: denies: Cough GI: denies: Abdominal Swelling, Vomiting, Diarrhea Skin: denies: Rash Musculoskeletal: denies: Neck pain, Back pain PD PAST MEDICAL HISTORY - Past Medical History Past Medical History: Yes Cardiovascular: Hypertension Respiratory: Other Endocrine/Autoimmune: Type 2 diabetes, HyPOthyroidism GI: Hiatal hernia, Hepatitis, Other PATROL COMMANDER: None : None HEENT: Chronic vision loss Psych: Depression, Anxiety Musculoskeletal: Osteoarthritis, Other Derm: Other - Past Surgical History Past Surgical History: Yes General: Colonoscopy, EGD Ortho: Spine surgery /PATROL COMMANDER: Hysterectomy Cardiovascular: Other - Present Medications Home Medications: Ambulatory Orders Medication Instructions Recorded Confirmed Metformin HCl [Fortamet] 500 mg PO HS 12/27/12 09/30/18 Escitalopram Oxalate [Lexapro] 20 mg PO DAILY 05/16/17 09/29/18 Ascorbic Acid [Vitamin C] 500 mg PO DAILY 09/29/18 09/30/18 Calcium Carbonate [Calcium] 600 mg PO DAILY 09/29/18 09/30/18 Cyanocobalamin (Vitamin B-12) 1,000 mcg PO DAILY 09/29/18 09/30/18 [Vitamin B-12] Guaifenesin [Mucinex] 600 mg PO PRN PRN 09/29/18 09/30/18 Milk Thistle 150 mg PO DAILY 09/29/18 09/30/18 Multivitamin [Daily Multiple 1 each PO DAILY 09/29/18 09/30/18 Vitamin] [place]-3/Dha/Epa/Fish Oil [Fish Oil 1 each PO DAILY 09/29/18 09/30/18 1,000 mg Softgel] Ubidecarenone/Vit E Acet [Co Q-10 1 each PO DAILY 09/29/18 09/29/18 100 mg Softgel] Buspirone HCl 30 mg PO DAILY 09/30/18 09/30/18 Levothyroxine Sodium 50 mg PO QDAC 09/30/18 09/30/18 lisinopriL [Lisinopril] 20 mg PO DAILY 09/30/18 09/30/18 raNITIdine HCL [Ranitidine HCl] 300 mg PO BID 09/30/18 09/30/18 oxyCODONE [Roxicodone] 5 mg PO Q4HR PRN #60 tablet 10/01/18 - Allergies Allergies/Adverse Reactions: Allergies Allergy/AdvReac Type Severity Reaction Status Date / Time Iodinated Contrast Media Allergy throat Verified 08/31/23 18:11 [Iodinated Contrast Media - swelling IV Dye] pneumococcal vaccine Allergy swelling Verified 08/31/23 18:11 [Pneumococcal Vaccine] ketamine AdvReac muscle Verified 08/31/23 18:11 aches for days - Social History Does the pt smoke?: No Smoking Status: Former smoker Does the pt drink ETOH?: Yes ETOH Use: Liquor Does the pt have substance abuse?: Yes Substance Use and Type: Marijuana - Immunizations Immunizations are current?: Yes Immunizations: TDAP current <10years - POLST Patient has POLST: No PD ED PE NORMAL - Vitals Vital signs reviewed: Yes - General General: Alert and oriented X 3, No acute distress, Well developed/nourished, Other (intoxicated) - HEENT HEENT: PERRL, Moist mucous membranes, Other (small laceration to the forehead, 1.5 cm. linear. subcutaneous.) - Neck Neck: Supple, no meningeal sign, No bony TTP - Cardiac Cardiac: RRR, Strong equal pulses - Respiratory Respiratory: No respiratory distress, Clear bilaterally - Abdomen Abdomen: Soft, Non tender, Non distended - Back Back: No spinal TTP - Derm Derm: Warm and dry - Extremities Extremities: No deformity, No tenderness to palpate, Normal ROM s pain - Neuro Neuro: Alert and oriented X 3 - Psych Psych: Normal mood, Normal affect Results - Vitals Vitals: Vital Signs - 24 hr 04/21/24 04/21/24 18:11 21:16 Temperature 36.9 C 36.9 C Heart Rate 89 86 Respiratory 18 16 Rate Blood Pressure 108/69 118/70 O2 Saturation 95 98 Oxygen O2 Source Room air - Labs Labs: Laboratory Tests 08/31/23 08/31/23 19:33 19:33 WBC 6.6 RBC 4.18 L Hgb 13.3 Hct 38.6 MCV 92.3 MCH 31.8 H MCHC 34.5 RDW 13.0 Plt Count 265 MPV 8.9 Neut # (Auto) 3.8 Lymph # (Auto) 2.3 [place] # (Auto) 0.4 Eos # (Auto) 0.1 Baso # (Auto) 0.0 Absolute Nucleated RBC 0.00 Nucleated RBC % 0.0 Sodium 137 Potassium 3.5 Chloride 102 Carbon Dioxide 20 L Anion Gap 15.0 H BUN 17 Creatinine 1.0 Estimated GFR (MDRD) 55 L Glucose 115 H Calcium 9.9 Total Bilirubin 0.4 AST 28 ALT 22 Alkaline Phosphatase 56 Total Protein 7.0 Albumin 4.3 Globulin 2.7 Albumin/Globulin Ratio 1.6 Lipase 23 - Rads (name of study) head CT Relevant Findings:: Final report received, See rad report cervical spine CT Relevant Findings:: Final report received, See rad report Procedures - Laceration (location) Forehead Length in cm: 1.5 Wound type: Linear, Into subcut fat, Clean Neurovascular status: Sensory intact, Motor intact, Vascular intact Wound preparation: Irrigated copiously NS, Wound explored, To the base Skin layer closure: Dermabond Other: Patient tolerated well, No complications, Neurovascular intact, Tetanus UTD PD Medical Decision Making - ED course Complexity details: reviewed results, re-evaluated patient, considered differential, d/w patient ED course: No acute findings on head CT or cervical spine CT. Laceration was repaired. No bony tenderness over the maxillofacial area. Normal dentition. No other lacerations. Tetanus up-to-date. Ambulating well. Patient did have a episode of brief hypotension, unclear if this was related to an equipment air or not, therefore IV fluids were given and labs were drawn. No significant laboratory abnormalities. Blood pressure returned to normal. Discussed sutures versus Dermabond, patient refuses suturing for her laceration. Therefore Dermabond was used. Patient counseled regarding signs and symptoms for which I believe and urgent re-evaluation would be necessary. Patient with good understanding of and agreement to plan and is comfortable going home at this time This document was made in part using voice recognition software. While efforts are made to proofread this document, sound alike and grammatical errors may occur. Departure - Departure Disposition: 01 Home, Self Care Clinical Impression: Ground-level fall Forehead laceration Qualifiers: Encounter type: initial encounter Qualified Code(s): S01.81XA - Laceration without foreign body of other part of head, initial encounter Alcohol intoxication Qualifiers: Complication of substance-induced condition: uncomplicated Qualified Code(s): F10.920 - Alcohol use, unspecified with intoxication, uncomplicated Condition: Stable Instructions: ED Alcohol Intoxication, ED Laceration Facial Skin Glue Follow-Up: your,doctor as needed [Other] Comments: Your head CT and cervical spine CT do not show any acute abnormalities today. Your laceration was repaired with Dermabond. You are given IV fluids and your laboratory testing was checked. Please follow-up with your doctor for further care. Do not apply any ointment as this will dissolve the glue. You can keep the glued area covered with a Band-Aid if you like. Just make sure that the Band-Aid does not stick to the glue itself. Please return if you worsen EXAM: [id number] CT/HEADWO ([id number]) PROCEDURE: Head WO INDICATIONS: fall, head/neck injury, +etoh TECHNIQUE: Noncontrast 4.5 mm thick angled axial sections acquired from the foramen magnum to the vertex. For radiation dose reduction, the following was used: automated exposure control, adjustment of mA and/or kV according to patient size. COMPARISON: None. FINDINGS: Image quality: Excellent. CSF spaces: Basal cisterns are patent. No extra-axial fluid collections. Ventricles are normal in size and shape. Brain: No midline shift. No intracranial masses or hemorrhage. Killian-white matter interface is normal. Skull and face: Calvarium and visualized facial bones are intact, without suspicious lesions. Sinuses: Visualized sinuses and mastoids are clear. Soft tissue contusion over the forehead. IMPRESSION: No acute intracranial pathology. PROCEDURE: Cervical Spine WO INDICATIONS: fall, head/neck injury, +etoh TECHNIQUE: Noncontrast 3 mm thick sections acquired from the skull base to the T4 level. Sagittal and coronal reformats were then constructed. For radiation dose reduction, the following was used: automated exposure control, adjustment of mA and/or kV according to patient size. COMPARISON: September 24, 2014. FINDINGS: Image quality: Exam is degraded by patient motion.. Bones: No fractures or dislocations. Visualized superior ribs are intact. Soft tissues: Prevertebral soft tissues are normal in thickness. No paravertebral hematomas. No apical pneumothoraces. Patulous esophagus with air-fluid levels. IMPRESSION: No acute, displaced fracture or traumatic subluxation. Patulous fluid-filled esophagus, correlate for aspiration. Forms: PCP List Discharge Date/Time: 08/31/23 21:00
[2023-08-31] MEDS: LIDOCAINE-EPINEPH-TETRACAINE 3 ML SYRINGE TOP STA (18:38)
--- NOTE | 2023-08-31 19:07 | CT Report ---
PROCEDURE: Head WO INDICATIONS: fall, head/neck injury, +etoh TECHNIQUE: Noncontrast 4.5 mm thick angled axial sections acquired from the foramen magnum to the vertex. For r adiation dose reduction, the following was used: automated exposure control, adjustment of mA and/or kV according to patient size. COMPARISON: None. FINDINGS: Image quality: Excellent. CSF spaces: Basal cisterns are patent. No extra-axial fluid collections. Ventricles are normal in size and shape. Brain: No midline shift. No intracranial masses or hemorrhage. Killian-white matter interface is norm al. Skull and face: Calvarium and visualized facial bones are intact, without suspicious lesions. Sinuses: Visualized sinuses and mastoids are clear. Soft tissue contusion over the forehead. IMPRESSION: No acute intracranial pathology. Reviewed by: Jerman Miller MD on 08/31/2023 6:05 PM [facility] Approved by: Jerman Miller MD on 08/31/2023 6:05 PM [facility] Station ID: [id number]
--- NOTE | 2023-08-31 19:10 | CT Report ---
PROCEDURE: Cervical Spine WO INDICATIONS: fall, head/neck injury, +etoh TECHNIQUE: Noncontrast 3 mm thick sections acquired from the skull base to the T4 level. Sagittal and coronal r eformats were then constructed. For radiation dose reduction, the following was used: automated exp osure control, adjustment of mA and/or kV according to patient size. COMPARISON: September 24, 2014. FINDINGS: Image quality: Exam is degraded by patient motion.. Bones: No fractures or dislocations. Visualized superior ribs are intact. Soft tissues: Prevertebral soft tissues are normal in thickness. No paravertebral hematomas. No ap ical pneumothoraces. Patulous esophagus with air-fluid levels. IMPRESSION: No acute, displaced fracture or traumatic subluxation. Patulous fluid-filled esophagus, correlate for aspiration. Reviewed by: Jerman Miller MD on 08/31/2023 6:08 PM CARLOS Approved by: Jerman Miller MD on 08/31/2023 6:08 PM AKARIANNA Station ID: [id number]
[2023-08-31] MEDS: SODIUM CHLORIDE 0.9% 1,000 ML IV STA (19:55)
[2023-08-31 19:59] LABS: BASOPHILS % (AUTO) 0.5 %; EOSINOPHILS # (AUTO) 0.1 10^3/uL (0.0-0.7); EOSINOPHILS % (AUTO) 0.9 %; HCT - HEMATOCRIT 38.6 % (37.0-47.0); HGB - HEMOGLOBIN 13.3 g/dL (12.0-16.0); LYMPHOCYTES # (AUTO) 2.3 10^3/uL (1.5-3.5); LYMPHOCYTES % (AUTO) 34.7 %; MEAN CORPUSCULAR HEMOGLOBIN 31.8 pg (27.0-31.0); MEAN CORPUSCULAR HGB CONC 34.5 g/dL (32.0-36.0); MEAN CORPUSCULAR VOLUME 92.3 fL (81.0-99.0); MEAN PLATELET VOLUME 8.9 fL (7.9-10.8); MONOCYTES # (AUTO) 0.4 10^3/uL (0.0-1.0); MONOCYTES % (AUTO) 6.7 %; NEUTROPHILS # (AUTO) 3.8 10^3/uL (1.5-6.6); NEUTROPHILS % (AUTO) 56.9 %; PLT - PLATELET COUNT 265 10^3/uL (130-450); RED BLOOD COUNT 4.18 10^6/uL (4.20-5.40); WHITE BLOOD COUNT 6.6 x10^3/uL (4.8-10.8)
[2023-08-31 20:15] LABS: ALBUMIN 4.3 g/dL (3.2-5.5); ALBUMIN/GLOBULIN RATIO 1.6 (1.0-2.2); BILIRUBIN,TOTAL 0.4 mg/dL (0.2-1.0); CALCIUM 9.9 mg/dL (8.5-10.3); POTASSIUM 3.5 mmol/L (3.5-4.5)
[2023-08-31 21:19] VITALS: BP 118/70; O2SAT 98
== END 2023-08-31 21:00 | disposition home or self-care (01) ==
LOC: ED 18:08
DX: S01.81XA Laceration without foreign body of other part of head, initial encounter (principal); W01.198A Fall on same level from slipping, tripping and stumbling with subsequent striking against other object, initial encounter; F10.920 Alcohol use, unspecified with intoxication, uncomplicated; I10 Essential (primary) hypertension; E11.9 Type 2 diabetes mellitus without complications; Z79.84 Long term (current) use of oral hypoglycemic drugs; Z87.891 Personal history of nicotine dependence
CPT/HCPCS: 12001; 36415; 80053; 83690; 85025; 99284

== ENCOUNTER 2023-10-13 11:01 | Emergency (ER) | payer MEDICARE ==
--- NOTE | 2023-10-13 12:09 | ED Physician Documentation ---
PD HPI LOWER EXT INJURY - Stated complaint Stated Complaint: RT FOOT INJ - Chief complaint Chief Complaint: Trauma Ext - History obtained from History obtained from: Patient - History of Present Illness PD HPI LOW EXT INJURY LOCATION: Right (She accidentally hit her foot on a door jam a few days ago and has moderate pain of the entire foot. No other injuries.) PD PAST MEDICAL HISTORY - Past Medical History Past Medical History: Yes Cardiovascular: Hypertension Respiratory: Other Endocrine/Autoimmune: Type 2 diabetes, HyPOthyroidism GI: Hiatal hernia, Hepatitis, Other CREDENTIALS SPECIALIST: None : None HEENT: Chronic vision loss Psych: Depression, Anxiety Musculoskeletal: Osteoarthritis, Other Derm: Other - Past Surgical History Past Surgical History: Yes General: Colonoscopy, EGD Ortho: Spine surgery /CREDENTIALS SPECIALIST: Hysterectomy Cardiovascular: Other - Present Medications Home Medications: Ambulatory Orders Medication Instructions Recorded Confirmed Metformin HCl [Fortamet] 500 mg PO HS 12/27/12 09/30/18 Escitalopram Oxalate [Lexapro] 20 mg PO DAILY 05/16/17 09/29/18 Ascorbic Acid [Vitamin C] 500 mg PO DAILY 09/29/18 09/30/18 Calcium Carbonate [Calcium] 600 mg PO DAILY 09/29/18 09/30/18 Cyanocobalamin (Vitamin B-12) 1,000 mcg PO DAILY 09/29/18 09/30/18 [Vitamin B-12] Guaifenesin [Mucinex] 600 mg PO PRN PRN 09/29/18 09/30/18 Milk Thistle 150 mg PO DAILY 09/29/18 09/30/18 Multivitamin [Daily Multiple 1 each PO DAILY 09/29/18 09/30/18 Vitamin] [place]-3/Dha/Epa/Fish Oil [Fish Oil 1 each PO DAILY 09/29/18 09/30/18 1,000 mg Softgel] Ubidecarenone/Vit E Acet [Co Q-10 1 each PO DAILY 09/29/18 09/29/18 100 mg Softgel] Buspirone HCl 30 mg PO DAILY 09/30/18 09/30/18 Levothyroxine Sodium 50 mg PO QDAC 09/30/18 09/30/18 lisinopriL [Lisinopril] 20 mg PO DAILY 09/30/18 09/30/18 raNITIdine HCL [Ranitidine HCl] 300 mg PO BID 09/30/18 09/30/18 oxyCODONE [Roxicodone] 5 mg PO Q4HR PRN #60 tablet 10/01/18 - Allergies Allergies/Adverse Reactions: Allergies Allergy/AdvReac Type Severity Reaction Status Date / Time Iodinated Contrast Media Allergy throat Verified 10/13/23 11:22 [Iodinated Contrast Media - swelling IV Dye] pneumococcal vaccine Allergy swelling Verified 10/13/23 11:22 [Pneumococcal Vaccine] ketamine AdvReac muscle Verified 10/13/23 11:22 aches for days - Social History Does the pt smoke?: No Smoking Status: Never smoker Does the pt drink ETOH?: Yes Does the pt have substance abuse?: Yes - Immunizations Immunizations are current?: Yes Immunizations: TDAP current <10years - POLST Patient has POLST: No PD ED PE NORMAL - Vitals Vital signs reviewed: Yes - General General: Alert and oriented X 3, No acute distress - Extremities Extremities: Other (Basically the entirety of the right foot is swollen and bruised. Maximal point of tenderness include the fifth metatarsophalangeal joint and the mid forefoot.) Results - Vitals Vitals: Vital Signs - 24 hr 10/13/23 10/13/23 11:16 12:26 Temperature 36 C L 36.2 C L Heart Rate 85 82 Respiratory 18 17 Rate Blood Pressure 135/76 H 133/72 H O2 Saturation 97 98 Oxygen O2 Source Room air - Rads (name of study) Three-view x-ray of the right foot Relevant Findings:: Final report received (Mildly displaced extra-articular intra-articular proximal fifth phalanx fracture), EMP independent interpretation of test (In addition to what the radiologist noted, I also think there is a nondisplaced hairline fracture of the proximal third metatarsal.) PD Medical Decision Making - ED course ED course: Looks like she has fractures of the third metatarsal and the fifth proximal phalanx. We discussed nonweightbearing but she did not think her balance would allow that. She has a walker and would feel much safer doing that as opposed to crutches. She was placed in a hard walking boot and advised on orthopedic follow-up. She declined pain medication. Departure - Departure Disposition: 01 Home, Self Care Clinical Impression: Closed fracture of phalanx of fifth toe Fracture of third metatarsal bone Qualifiers: Encounter type: initial encounter Fracture type: closed Fracture alignment: nondisplaced Laterality: right Qualified Code(s): S92.334A - Nondisplaced fracture of third metatarsal bone, right foot, initial encounter for closed fracture Condition: Good Instructions: ED Fx Foot Follow-Up: [facility] [Provider Group] - Within 1 week Comments: As discussed, it looks like there are both fractures of the proximal phalanx of the pinky toe and the third metatarsal bone proximally. I think these will heal okay. Keep the boot on for the most part when up and around. I do not think you need to wear it in bed nor while trying to bathe. Try to take the weight off of it is much as possible with the walker. Follow-up with the orthopedics clinic in about a week's time, call today for an appointment. Tylenol for pain, keep it elevated and you can ice it as well. Forms: PCP List Discharge Date/Time: 10/13/23 12:26
[2023-10-13 12:28] VITALS: BP 133/72; O2SAT 98
--- NOTE | 2023-10-13 12:30 | XRAY Report ---
PROCEDURE: Foot 3+V RT INDICATIONS: Trauma TECHNIQUE: 3 views of the foot were acquired. COMPARISON: None. FINDINGS: Bones: There is a mildly displaced fracture at the base of the proximal fifth phalanx. Fracture lucen cies extend into the joint space.. No suspicious bony lesions. Soft tissues: No tibiotalar joint effusion. Achilles tendon appears normal. IMPRESSION: Mildly displaced intra-articular proximal fifth phalanx fracture. Reviewed by: Ignacia Taylor MD on 10/13/2023 12:29 PM PDT Approved by: Ignacia Taylor MD on 10/13/2023 12:29 PM PDT Station ID: [id number]
== END 2023-10-13 12:26 | disposition home or self-care (01) ==
LOC: ED 11:01
DX: S92.511A Displaced fracture of proximal phalanx of right lesser toe(s), initial encounter for closed fracture (principal); S92.514A Nondisplaced fracture of proximal phalanx of right lesser toe(s), initial encounter for closed fracture; W22.8XXA Striking against or struck by other objects, initial encounter; I10 Essential (primary) hypertension; E11.9 Type 2 diabetes mellitus without complications; E03.9 Hypothyroidism, unspecified; Z79.899 Other long term (current) drug therapy; Z79.84 Long term (current) use of oral hypoglycemic drugs
CPT/HCPCS: 99283; 99284

== ENCOUNTER 2023-10-21 09:00 | Outpatient (CLI) | payer MEDICARE ==
--- NOTE | 2023-10-21 10:34 | XRAY Report ---
PROCEDURE: Foot 3+V RT INDICATIONS: RIGHT FOOT PAIN TECHNIQUE: 3 views of the foot were acquired. COMPARISON: 10/13/2023 FINDINGS: Bones: Mildly displaced fifth proximal phalangeal base fracture is similar to prior. There is mild in terval callus formation. Mild first MTP degenerative changes. Soft tissues: No suspicious calcifications. IMPRESSION: Similar mildly displaced fifth proximal phalangeal base fracture. Reviewed by: Marcelo Garza MD on 10/21/2023 10:32 AM PDT Approved by: Marcelo Garza MD on 10/21/2023 10:32 AM PDT Station ID: [id number]
== END 2023-10-21 09:01 | disposition home or self-care (01) ==
LOC: DI 09:00
PROVIDERS: ATTEND Orthopaedic Surgery
DX: S92.511D Displaced fracture of proximal phalanx of right lesser toe(s), subsequent encounter for fracture with routine healing (principal)

== ENCOUNTER 2023-12-16 13:13 | Outpatient (CLI) | payer MEDICARE ==
--- NOTE | 2023-12-17 08:08 | Mammography Report ---
BILATERAL DIGITAL SCREENING MAMMOGRAM 3D/2D: 12/16/2023 CLINICAL: Routine screening. Comparison is made to exams dated: 12/11/2022 mammogram, 11/16/2021 mammogram, 11/23/2020 mammogram, 2019 mammogram, 06/19/2017 mammogram, and 07/06/2018 mammogram - [facility]. Both breasts are extremely dense, which lowers the sensitivity of mammography (category d />75% gland ular tissue). No significant masses, calcifications, or other findings are seen in either breast. There has been no significant interval change. IMPRESSION: NEGATIVE There is no mammographic evidence of malignancy. A 1 year screening mammogram is recommended. Based on the Tyrer Cuzick model (a risk assessment model) the patient's lifetime risk is 8.5% and her 10 year risk is 7.0%. According to the ACR, ACS, and NCCN guidelines, an annual breast MRI exam yariel g with mammogram is recommended if the patient's lifetime risk is 20% or greater. This exam was interpreted at Station ID: [id number]. NOTE: For mammograms, a report in lay terms will be sent to the patient. Approximately 15% of breast malignancies will not be visualized mammographically. In the management of a palpable breast mass, a negative mammogram must not discourage biopsy of a clinically suspicious lesion. Electronically Signed By: Christel Negro M.D., Ph.D. madelaine/misha:12/17/2023 06:12:35 letter sent: No_Letter ACR BI-RADS Category 1: Negative [id number] PARENCHYMAL PATTERN: (VD) - The breast(s) demonstrate(s) extremely dense parenchyma, limiting the sen sitivity of mammography. BI-RADS CATEGORY: (1) - 1 RECOMMENDATION: (ANNUAL) - Recommend routine annual screening mammography. [id number] 1 year screening LATERALITY: (B)
== END 2023-12-16 13:14 | disposition home or self-care (01) ==
LOC: DI 13:13
PROVIDERS: ATTEND Internal Medicine
DX: Z12.31 Encounter for screening mammogram for malignant neoplasm of breast (principal); R92.343 Mammographic extreme density, bilateral breasts